=== PATIENT | male | born 1935 | race Caucasian/White ===

== ENCOUNTER 2017-08-07 12:24 | Inpatient (IN) | payer MEDICARE, OTHER ==
[~2017-08-07] VITALS: Ht 165.1 cm; Wt 70.3 kg
[2017-08-07 12:45] VITALS: Ht 165.1 cm; Wt 70.3 kg
--- NOTE | 2017-08-07 12:54 | ERD ---
ER Documentation Chief Complaint Chief Complaint Irregularly irregular rhythm from dialysis HPI This is an 81-year-old male with a history of hypertension, hypothyroidism on Synthroid, COPD, end-stage renal disease on dialysis Sunday//Sunday who is presenting with concerns of new onset atrial fibrillation from dialysis. The patient states that he thinks he has had an irregular rhythm in the past, but he does not know for sure. The patient was at dialysis today when it was noted that he was in an irregularly irregular rhythm. There is concerns of acute onset atrial fibrillation. It is unclear when it started. The patient is not on any blood thinners. She otherwise does not endorse any symptoms. The patient denies feeling sick recently. The patient denies fever or chills. The patient has had no headache or vision changes. The patient does not endorse neck or back pain. The patient denies lightheadedness or dizziness. The patient has had no chest pain or shortness of breath or trouble breathing. The patient denies nausea or vomiting. The patient denies abdominal pain or changes to bowel movements or urination. The patient has had no focal deficits. The patient has had no weakness or numbness or tingling to the face or extremities. ROS All systems reviewed and are negative except as per history of present illness. Medications Home Meds Reported Medications Albuterol Sulfate* (Proair HFA*) 8.5 Gm Hfa.aer.ad, 2 PUFF INH Q4H Y for WHEEZING AND SOB, #1 INHALER 08/07/17 Levothyroxine Sodium* (Levothyroxine Sodium*) 50 Mcg Tablet, 50 MCG PO BEFORE BREAKFAST, #30 TAB 08/07/17 Metoprolol Tartrate* (Lopressor*) 50 Mg Tab, 50 MG PO BID, #60 TAB 08/07/17 Hydralazine Hcl* (Apresoline*) 50 Mg Tab, 50 MG PO Q8, #90 TAB 08/07/17 Allergies Allergies: Coded Allergies: No Known Allergy (Unverified , 08/07/17) PMhx/Soc History of Surgery: Yes (R AV Fistula) Anesthesia Reaction: No Hx Neurological Disorder: No Hx Respiratory Disorders: No Hx Cardiac Disorders: Yes (HTN) Hx Psychiatric Problems: No Hx Miscellaneous Medical Probl: Yes (ESRD on HD //) FmHx Family History: diabetes Physical Exam Vitals Vital Signs Date Time Temp Pulse Resp B/P Pulse Ox O2 Delivery O2 Flow Rate FiO2 08/07/17 17:23 98.1 71 16 154/69 98 Room Air 08/07/17 14:54 98.2 107 17 159/81 98 Room Air 08/07/17 13:15 118 18 157/94 99 08/07/17 12:45 98.9 91 18 129/78 100 Physical Exam Const: No apparent distress, well-developed, well-nourished Head: Normocephalic, Atraumatic Eyes: Normal Conjunctiva. Extraocular movements intact. Pupils equal, round and reactive to light ENT: Normal External Ears, Nose and Mouth. Neck: Full range of motion. No meningismus. Resp: Clear to auscultation bilaterally, No wheezes, rales or rhonchi Cardio: Tachycardia, irregularly irregular rhythm. No murmurs, rubs or gallops Abd: Soft, non tender, non distended. Normal bowel sounds Skin: No petechiae or rashes. Back: No midline tenderness. No CVA tenderness Ext: No cyanosis, or edema. Palpable thrill to right upper extremity AV fistula. No bleeding. Neur: Awake and alert, oriented 4. Cranial nerves intact. No facial droop. Normal strength, sensation and coordination. Psych: Normal Mood and Affect Result Diagram: 08/07/17 1306 08/07/17 1306 Results 24 hrs Laboratory Tests Test 08/07/17 13:06 08/07/17 15:45 White Blood Count 5.510^3/ul Red Blood Count 3.4410^6/ul Hemoglobin 11.0g/dl Hematocrit 32.1% Mean Corpuscular Volume 93.3fl Mean Corpuscular Hemoglobin 32.0pg Mean Corpuscular Hemoglobin Concent 34.3g/dl Red Cell Distribution Width 13.4% Platelet Count 13970^3/UL Mean Platelet Volume 9.3fl Neutrophils % 68.4% Lymphocytes % 18.8% Monocytes % 9.2% Eosinophils % 2.7% Basophils % 0.5% Nucleated Red Blood Cells % 0.0/100WBC Neutrophils # 3.810^3/ul Lymphocytes # 1.010^3/ul Monocytes # 0.510^3/ul Eosinophils # 0.210^3/ul Basophils # 0.010^3/ul Nucleated Red Blood Cells # 0.010^3/ul Sodium Level 137mmol/L Potassium Level 4.3mmol/L Chloride Level 95mmol/L Carbon Dioxide Level 27mmol/L Anion Gap 19 Blood Urea Nitrogen 30mg/dl Creatinine 3.84mg/dl Glucose Level 120mg/dl Calcium Level 9.2mg/dl Troponin I < 0.012ng/ml Prothrombin Time 14.1Sec Prothrombin Time Ratio 1.1 INR International Normalized Ratio 1.09 Activated Partial Thromboplast Time 37.5Sec Current Medications Medications (Trade) Dose Ordered Sig/Raul Route PRN Reason Start Time Stop Time Status Last Admin Dose Admin Metoprolol Tartrate (Lopressor) 5 mg Q5M IV 08/07/17 15:30 08/07/17 15:43 DC Ondansetron HCl (Zofran Inj) 4 mg ER BRIDGE PRN IV NAUSEA AND/OR VOMITING 08/07/17 17:30 11 17:29 Acetaminophen (Tylenol Tab) 650 mg ER BRIDGE PRN PO MILD PAIN/FEVER 08/07/17 17:30 08/08/17 17:29 Procedures/MDM MDM The patient's presentation warrants further investigation. The onset of atrial fibrillation is unclear. The patient does not have a diagnosis of atrial fibrillation and he is not on any blood thinners at home. I am concerned about the possibility of clot burden and the patient will likely require admission to the hospital. A cardiac workup will be performed, though I have low suspicion for acute coronary syndrome given the patient's lack of symptoms. The patient does have a history of hypothyroidism on Synthroid. A TSH and free T4 will need to be evaluated in the hospital. LABS The patient's blood work was obtained and reviewed. The patient's CBC shows no leukocytosis and no left shift. The patient is afebrile and does not appear systemically ill. I do not suspect a systemic infection. The patient is mildly anemic today, but this does not require emergent treatment. The patient's platelet count is unremarkable. The patient's BMP shows no signs of metabolic or electrolyte emergencies. The patient has decreased renal function testing with an elevated BUN and creatinine, which correlates with his chronic kidney disease. Fortunately, he finished dialysis today. EKG EKG read by me: Rate/Rhythm: Irregularly irregular rhythm indicating atrial fibrillation with sinus tachycardia at 100 bpm, indicating a mild rapid ventricular response. Intervals: No P waves. Normal QRS and QTc. [place]: Left shifted Impression: A. fib with mild RVR, no evidence of acute ischemia. IMAGING CXR FINDINGS: There is mild cardiomegaly and an sclerotic aortic calcification. The pulmonary vessels are normal in caliber. There are increased markings in the left lower lung in the retrocardiac region may represent evolving infiltrate. Recommend a lateral view for further evaluation. Lungs otherwise clear. Costophrenic angles sharp. The bony thorax is unremarkable. IMPRESSION: Increased markings with questionable air bronchograms in the left lower lobe which may represent evolving pneumonia. Recommend lateral view for further evaluation. Mild cardiomegaly and atherosclerotic aortic calcification Electronically viewed and signed by .Tj Law MD, MD on 08/07/2017 13:05 TREATMENT/DISPOSITION The patient's heart rate jumped up to the 120s and seemed to remain there for some time. I did order metoprolol for him. However, prior to administration of the metoprolol, he actually converted to a normal sinus rhythm. I am concerned about paroxysmal atrial fibrillation and him. A TSH and free T4 was sent off. It will be interesting to see if this is associated with his paroxysmal symptoms. The patient will be initiated on heparin in the hospital and will likely require anticoagulation at home. This decision will be deferred to the primary team. At this time, I feel that the patient requires admission for further evaluation and management. The patient will be admitted to panel in accordance with the patient's insurance. The patient was accepted by Dr. Russel Morales at 5:30 PM on July. The patient's blood pressure was elevated at greater than 120/80 while in the emergency department. This may be evaluated further in the hospital. Disclaimer: Inadvertent spelling and grammatical errors are likely due to EHR/ dictation software use and do not reflect on the overall quality of patient care. Note that the electronic time recorded on this note does not necessarily reflect the actual time of the patient encounter. Departure Diagnosis: Primary Impression: Atrial fibrillation Atrial fibrillation type: unspecified Qualified Code: I48.91 - Atrial fibrillation, unspecified type Additional Impressions: Hypertension Hypertension type: unspecified Qualified Code: I10 - Hypertension, unspecified type History of hypothyroidism Condition: WILLIAM Huff MD Aug 07, 2017 12:54
--- NOTE | 2017-08-07 13:06 | RADRPT ---
PROCEDURE: Chest x-ray CLINICAL INDICATION: Chest pain TECHNIQUE: Chest single view COMPARISON: None FINDINGS: There is mild cardiomegaly and an sclerotic aortic calcification. The pulmonary vessels are normal in caliber. There are increased markings in the left lower lung in the retrocardiac region may repr esent evolving infiltrate. Recommend a lateral view for further evaluation. Lungs otherwise clear. C ostophrenic angles sharp. The bony thorax is unremarkable. IMPRESSION: 1. Increased markings with questionable air bronchograms in the left lower lobe which may represent evolving pneumonia. Recommend lateral view for further evaluation. 2. Mild cardiomegaly and atherosclerotic aortic calcification RPTAT: HH .Tj Law MD, MD Date Time Electronically viewed and signed by .Tj Law MD, on 08/07/2017 13:05 .W/
[2017-08-07 13:21] LABS: BASOPHILS % 0.5 % (0.0-2.0); EOSINOPHILS # 0.2 10^3/ul (0.0-0.5); EOSINOPHILS % 2.7 % (0.0-7.0); HEMATOCRIT 32.1 % (42.0-52.0); LYMPHOCYTES % 18.8 % (15.0-51.0); MEAN CORPUSCULAR HGB CONC 34.3 g/dl (32.0-37.0); MEAN CORPUSCULAR VOLUME 93.3 fl (82.0-101.0); MEAN PLATELET VOLUME 9.3 fl (7.4-10.4); MONOCYTE # 0.5 10^3/ul (0.3-0.9); MONOCYTES % 9.2 % (0.0-11.0); NEUTROPHIL # 3.8 10^3/ul (1.6-7.5); NEUTROPHILS % 68.4 % (39.0-77.0); PLATELET COUNT 208 10^3/UL (140-415); RED BLOOD COUNT 3.44 10^6/ul (4.70-6.10); RED CELL DISTRIBUTION WIDTH 13.4 % (11.5-14.5); WHITE BLOOD COUNT 5.5 10^3/ul (4.8-10.8)
[2017-08-07] MEDS ORDERED: HYDR-3672 PO (13:25)
[2017-08-07] MEDS ORDERED: METO-429 PO (13:25)
[2017-08-07] MEDS ORDERED: ALBU8.5H3 INH (13:27)
[2017-08-07] MEDS ORDERED: LEVO50TA74 PO (13:27)
[2017-08-07 13:40] LABS: ANION GAP 19 (8-16); BLOOD UREA NITROGEN 30 mg/dl (7-20); CALCIUM 9.2 mg/dl (8.4-10.2); CARBON DIOXIDE 27 mmol/L (21-31); CHLORIDE 95 mmol/L (97-110); CREATININE 3.84 mg/dl (0.61-1.24); GLUCOSE 120 mg/dl (70-220); POTASSIUM 4.3 mmol/L (3.5-5.1); SODIUM 137 mmol/L (135-144)
[2017-08-07 13:53] LABS: TROPONIN-I < 0.012 ng/ml (0.00-0.12)
[2017-08-07] MEDS: METOPROLOL 5 MG INJ IV SCH ×3 (15:30→15:40)
[2017-08-07 16:20] LABS: INR 1.09; PROTIME 14.1 Sec (12.2-14.2); PT RATIO 1.1
[2017-08-07 16:21] LABS: PARTIAL THROMBOPLASTIN TIME 37.5 Sec (25.0-35.0)
[2017-08-07] MEDS ORDERED: ONDANSETRON 4 MG INJ IV PRN ×2 (17:30→18:30)
[2017-08-07] MEDS ORDERED: ACETAMINOPHEN 325 MG TAB PO PRN ×2 (17:30→18:30)
[2017-08-07] MEDS ORDERED: ALBUTEROL/IPRATROPIUM (NEB) 3 ML AMP HHN PRN (18:30)
[2017-08-07] MEDS ORDERED: HYDROCODONE/APAP (5/325) TAB PO PRN (18:30)
[2017-08-07] MEDS ORDERED: LORAZEPAM 0.5 MG TAB PO PRN (18:30)
[2017-08-07] MEDS ORDERED: morphine 2 MG INJ IV PRN (18:30)
[2017-08-07] MEDS ORDERED: DOCUSATE SODIUM 100 MG CAP PO PRN (18:30)
[2017-08-07] MEDS ORDERED: BISACODYL (EC) 5 MG TAB PO PRN (18:30)
[2017-08-07] MEDS ORDERED: NACL 0.9% 3 ML SYG IV SCH (18:30)
[2017-08-07 18:40] VITALS: TEMP 98.9
--- NOTE | 2017-08-07 18:42 | HP ---
Date/Time of Note Date/Time of Note DATE: 08/07/17 TIME: 18:37 Assessment/Plan VTE Prophylaxis VTE Prophylaxis Intervention: heparin Lines/Catheters IV C[facility]ter [facility]from [facility] [place] Assessment/Plan Chief Complaint/Hosp Course Patient is a 81-year-old male with past medical history of hypothyroidism, hypertension, ESRD who presents with new onset atrial fibrillation with RVR Assessment and plan Atrial fibrillation with RVR -Normal sinus currently -Cardiology consulted, heparin drip started, due to questionable previous history, questionable paroxysmal A. fib -Continue rate control medication as patient is already on metoprolol -Monitor on telemetry End-stage renal disease -Nephrology consulted as patient's diesel engine assembler is not on staff -Had full dialysis today, next dialysis session is scheduled for Questionable pneumonia -Asymptomatic with no shortness of breath, however x-ray does show questionable pneumonia, 2 view will be ordered -Ceftriaxone for now Hypothyroidism -TSH in the a.m. with T4 excellent-continue levothyroxine Hypertension -Continue hydralazine and metoprolol Problems: HPI/ROS Admit Date/Time Admit Date/Time Hx of Present Illness Patient is a 81-year-old male with past medical history significant for hypothyroidism, hypertension, end-stage renal disease on hemodialysis Sunday, , Sunday who presents to [facility] hospital after being sent by his dialysis center for atrial fibrillation with RVR. Patient is currently asymptomatic and feels perfectly fine with no acute complaints. Patient states that he does not feel lightheaded, and has no nausea vomiting diarrhea or dizziness. 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 Patient is helped by sophy at bedside who states that patient may have a history of an arrhythmia but does not know if it is atrial fibrillation in the past. PMH: Hypertension, end-stage renal disease, hypothyroidism PSH: Right sided AV fistula upper extremity Social: Denies drinking, drugs, smoking Meds: Metoprolol, levothyroxine, albuterol, hydralazine PMH/Family/Social Social History Smoking Status: Former smoker Exam/Review of Systems Vital Signs Vitals Vital Signs Date Time Temp Pulse Resp B/P Pulse Ox O2 Delivery O2 Flow Rate FiO2 08/07/17 17:23 98.1 71 16 154/69 98 Room Air Exam Exam Physical exam General: Patient is laying in bed and answers questions appropriately Mentation: Patient is alert and oriented 4, Head: Normocephalic atraumatic Eyes: EOMI, pupils reactive to light Neck: Supple, nontender, midline Respiratory: Clear to auscultation bilaterally Cardiovascular: regular rate, no obvious murmurs Gastrointestinal: non-tender to palpation, bowel sounds heard. Neurological: Moves all extremities spontaneously Skin: No new skin lesions Labs Result Diagram: 08/07/17 1306 08/07/17 1306 Medications Medications Current Medications Lorazepam (Ativan) 0.5 mg Q8H PRN PO ANXIETY; Start 08/07/17 at 18:30; Status UNV Ondansetron HCl (Zofran Inj) 4 mg Q6H PRN IV NAUSEA AND/OR VOMITING; Start at 18:30; Status UNV Aspirin (Aspirin) 81 mg DAILY PO ; Start 08/08/17 at 09:00; Status UNV Acetaminophen (Tylenol Tab) 650 mg Q6H PRN PO PAIN LEVEL 1-3 OR FEVER; Start 08/07/17 at 18:30; Status UNV Acetaminophen/ Hydrocodone Bitart ([place] (5/325)) 1 tab Q6H PRN PO PAIN LEVEL 4 -6; Start 08/07/17 at 18:30; Status UNV Morphine Sulfate (morphine) 2 mg Q4H PRN IV PAIN LEVEL 7-10; Start 08/07/17 at 18:30; Status UNV Docusate Sodium (Colace) 100 mg Q12H PRN PO CONSTIPATION; Start 08/07/17 at 18 :30; Status UNV Bisacodyl 5 mg 5 mg DAILY PRN PO CONSTIPATION; Start 08/07/17 at 18:30; Status UNV Ceftriaxone Sodium (Rocephin) 50 ml @ 100 mls/hr Q24H IVPB ; Start 08/07/17 at 18:30; Status UNV Hydralazine HCl (Apresoline) 50 mg Q8 PO ; Start 08/07/17 at 22:00; Status UNV Metoprolol Tartrate (Lopressor) 50 mg BID PO ; Start 08/07/17 at 21:00; Status UNV RENNY ESQUIVEL Aug 07, 2017 18:42
[2017-08-07 18:55] LABS: BASOPHILS % 0.5 % (0.0-2.0); EOSINOPHILS # 0.1 10^3/ul (0.0-0.5); EOSINOPHILS % 1.2 % (0.0-7.0); HEMATOCRIT 31.1 % (42.0-52.0); HEMOGLOBIN 10.7 g/dl (14.0-18.0); LYMPHOCYTES # 0.9 10^3/ul (0.8-2.9); LYMPHOCYTES % 14.6 % (15.0-51.0); MEAN CORPUSCULAR HEMOGLOBIN 31.8 pg (29.0-33.0); MEAN CORPUSCULAR HGB CONC 34.4 g/dl (32.0-37.0); MEAN CORPUSCULAR VOLUME 92.6 fl (82.0-101.0); MEAN PLATELET VOLUME 9.7 fl (7.4-10.4); MONOCYTE # 0.4 10^3/ul (0.3-0.9); MONOCYTES % 6.5 % (0.0-11.0); NEUTROPHIL # 4.9 10^3/ul (1.6-7.5); NEUTROPHILS % 76.9 % (39.0-77.0); PLATELET COUNT 230 10^3/UL (140-415); RED BLOOD COUNT 3.36 10^6/ul (4.70-6.10); RED CELL DISTRIBUTION WIDTH 13.4 % (11.5-14.5); WHITE BLOOD COUNT 6.4 10^3/ul (4.8-10.8)
[2017-08-07] MEDS ORDERED: HEPARIN 1000 UNITS/ML 10 ML INJ IV ONE (19:00)
[2017-08-07] MEDS ORDERED: HEPARIN 1000 UNITS/ML 10 ML INJ IV PRN (19:00)
[2017-08-07] MEDS ORDERED: LABETALOL HCL 20MG INJ IV PRN (19:00)
[2017-08-07] MEDS ORDERED: hydrALAzine 20 MG INJ IV PRN (19:00)
[2017-08-07] MEDS: ALBUTEROL/IPRATROPIUM (NEB) 3 ML AMP HHN SCH (19:58)
[2017-08-07 20:08] VITALS: PULSE 71
[2017-08-07 20:32] VITALS: BP 140/57; RESP 16
[2017-08-07 20:41] LABS: INR 0.99; PARTIAL THROMBOPLASTIN TIME 26.1 Sec (25.0-35.0); PROTIME 13.1 Sec (12.2-14.2)
[2017-08-07] MEDS: METOPROLOL 50 MG TAB PO SCH (22:42)
[2017-08-07] MEDS: HEPARIN 25000 UNITS/250 ML 250 ML IV SCH (23:08)
[2017-08-07] MEDS: CEFTRIAXONE 1 GM/50 ML (PMX) 50 ML IVPB SCH (23:31)
[2017-08-08] VITALS (12 sets, daily range): BP systolic 122–153; BP diastolic 57–70; PULSE 57–71; RESP 17–20
--- NOTE | 2017-08-08 04:47 | RADRPT ---
PROCEDURE: XR Chest. CLINICAL INDICATION: pneumonia TECHNIQUE: PA and Lateral views of the chest were obtained. COMPARISON: CHEST 08/07/2017 FINDINGS: There are low volumes with lower lobe compressive changes. Stable cardiomegaly with thoracic aortic atherosclerotic calcifications. The right hemidiaphragm is elevated with associated compressive atel ectasis. Interval improved left retrocardiac aeration with decreased infiltrates or atelectasis. The re is no evidence of congestive heart failure, pleural effusion or pneumothorax. Senescent osseous c hanges are noted. IMPRESSION: 1. Interval decreased left retrocardiac infiltrates or atelectasis. 2. Stable cardiomegaly. 3. Thoracic aortic atherosclerotic calcifications. 4. Senescent osseous changes. RPTAT: HRSR Physician Debbie Date Time Electronically viewed and signed by Physician Debbie on 08/08/2017 04:47 RR/
[2017-08-08] MEDS: LEVOTHYROXINE 50 MCG TAB PO SCH (06:17)
[2017-08-08 08:12] LABS: BASOPHILS % 0.5 % (0.0-2.0); EOSINOPHILS # 0.2 10^3/ul (0.0-0.5); EOSINOPHILS % 3.9 % (0.0-7.0); HEMATOCRIT 28.9 % (42.0-52.0); LYMPHOCYTES # 1.2 10^3/ul (0.8-2.9); LYMPHOCYTES % 21.6 % (15.0-51.0); MEAN CORPUSCULAR HEMOGLOBIN 32.4 pg (29.0-33.0); MEAN CORPUSCULAR HGB CONC 34.6 g/dl (32.0-37.0); MEAN CORPUSCULAR VOLUME 93.5 fl (82.0-101.0); MEAN PLATELET VOLUME 9.3 fl (7.4-10.4); MONOCYTE # 0.5 10^3/ul (0.3-0.9); MONOCYTES % 9.3 % (0.0-11.0); NEUTROPHIL # 3.7 10^3/ul (1.6-7.5); NEUTROPHILS % 64.5 % (39.0-77.0); PLATELET COUNT 213 10^3/UL (140-415); RED BLOOD COUNT 3.09 10^6/ul (4.70-6.10); RED CELL DISTRIBUTION WIDTH 13.7 % (11.5-14.5); WHITE BLOOD COUNT 5.7 10^3/ul (4.8-10.8)
[2017-08-08] MEDS: ALBUTEROL/IPRATROPIUM (NEB) 3 ML AMP HHN SCH ×3 (08:30→19:37)
[2017-08-08 08:32] LABS: ALBUMIN/GLOBULIN RATIO 1.14; BILIRUBIN,INDIRECT 0.3 mg/dl (0-1.1); BILIRUBIN,TOTAL 0.3 mg/dl (0.2-1.3); CALCIUM 8.4 mg/dl (8.4-10.2); CHOL/HDL RATIO 3.7 RATIO; CREATININE 5.96 mg/dl (0.61-1.24); POTASSIUM 5.4 mmol/L (3.5-5.1); TOTAL PROTEIN 7.5 g/dl (6.1-8.1)
[2017-08-08 08:45] LABS: INR 1.1; PROTIME 14.2 Sec (12.2-14.2); PT RATIO 1.1
[2017-08-08] MEDS ORDERED: ASPIRIN 81 MG TAB PO SCH (09:00)
--- NOTE | 2017-08-08 09:03 | CONS ---
DATE OF ADMISSION: 08/07/2017 DATE OF CONSULTATION: ADDENDUM PHYSICAL EXAMINATION: VITAL SIGNS: 148/61, temp 98, respirations 20, pulse was 70 and regular. EYES: Extraocular muscles were full. NOSE, MOUTH, AND THROAT: Normal. NECK: No JVD, thyroid enlargement or adenopathy. LUNGS: Clear. HEART: Rhythm regular. Heart tones diminished, I/ systolic murmur. No third or fourth sound. ABDOMEN: Nontender. Liver and spleen were not palpable. No masses or tenderness were noted. EXTREMITIES: No edema. Reduced peripheral pulses. Calves nontender. NEUROLOGIC: No lateralizing motor weakness. Dictated By: KEYSHAWN BARBA/JONEL Conf#: [id number] DID#: [id number]
--- NOTE | 2017-08-08 09:06 | CONS ---
DATE OF ADMISSION: 08/07/2017 DATE OF CONSULTATION: 08/08/2017 TYPE OF CONSULTATION: Renal. Dear Dr. Max López: Thank you very much for allowing me to evaluate this 81-year-old male with known chronic renal insuf ficiency having been maintained on outpatient dialysis, admitted with palpitations during his dialys is treatment yesterday. HISTORICAL EVENTS: Interview with the patient today reveals he has been on dialysis for about 3-4 y ears. It was towards the end or after dialysis that he noted palpitations. He noted some mild shor tness of breath, no chest pain, nausea, vomiting or abdominal pain, fever or chills or cough. Becau se of the latter, he was transported to [facility] and admitted to the hospital and [facility] e admission monitoring has revealed regular rhythm. PAST MEDICAL HISTORY: Includes: 1. No history of coronary disease or NE. 2. Chronic renal insufficiency, having been on dialysis for about 5 years. 3. Hypothyroidism. 4. Former smoker. 5. History of diabetes. FAMILY HISTORY: To be obtained later. PRESENT MEDICATIONS: 1. Ceftriaxone 1 gram q.24h. 2. Tylenol p.r.n. 3. Albuterol inhaler. 4. Aspirin 81 mg per day. 5. Heparin drip. 6. Hydralazine as needed. 7. Synthroid 50 mcg per day. 8. Metoprolol 50 b.i.d. LABORATORY AND DIAGNOSTIC STUDIES: Electrolytes unrevealing. Troponin was negative. TSH was 5.43. Protime was normal. PTT slightly elevated to 37.5. CBC, hematocrit 31.1, white count normal, monik telets were normal. Imaging revealed increased markings with questionable bronchogram left lower lo be, thought representing pneumonia. IMPRESSION: 1. Chronic renal failure, having been maintained on dialysis pending labs today. His next dialysis can be scheduled tomorrow. 2. Atrial fibrillation noted on rhythm strip prior to his arrival with evidence of sinus rhythm sin admission. Await cardiac evaluation with respect to treadmill testing and need for chronic antic oagulation therapy. 3. Anemia, likely secondary to renal insufficiency. 4. Abnormal chest x-ray suggesting pneumonia, but without other clinical evidence supporting the sa me. Consider obtaining a CAT scan of the chest to confirm. PLAN: We will arrange for next dialysis tomorrow if indeed he remains admitted to the hospital. Dictated By: KEYSHAWN UPTON MD MR/NTS Conf#: [id number] DID#: [id number]
[2017-08-08 09:27] LABS: PARTIAL THROMBOPLASTIN TIME 101.4 Sec (25.0-35.0)
[2017-08-08] MEDS ORDERED: NA POLYST SULFON 15 GM/60 ML BTL PO ONE (09:30)
[2017-08-08] MEDS: HEPARIN 25000 UNITS/250 ML 250 ML IV SCH ×2 (09:38→16:56)
[2017-08-08] MEDS: MULTIVIT/CA CARB/B CMPLX/FA TAB PO SCH (10:21)
[2017-08-08] MEDS: METOPROLOL 50 MG TAB PO SCH ×2 (10:21→21:30)
--- NOTE | 2017-08-08 13:01 | RADRPT ---
PROCEDURE: CT Chest without contrast. CLINICAL INDICATION: Shortness of breath TECHNIQUE: CT scan of the chest without contrast was performed on a multidetector high-resolution CT scanner. Coronal and sagittal reformatted images were obtained from the axial source images. The total exam CTDI equals 14 mGy and the total exam DLP equals 527 mGy-cm. One or more of the followi ng dose reduction techniques were used: Automated exposure control, Adjustment of the mA and/or kV a ccording to patient size, and/or use of iterative reconstruction technique. DICOM images are availab le. COMPARISON: Chest x-ray yesterday. FINDINGS: Left lower lobe calcified granuloma. There are intralobular and interlobular left basilar lung septa l thickening with bronchiolectasis. Left lower lobe pleural thickening. There is mild right lower l obe scarring. Right lower lobe subpleural nodule adjacent to the major fissure. 3 mm right periphera l upper lobe clustered solid nodules. No mediastinal or hilar lymphadenopathy. No evidence of pleural or pericardial effusion. Aortic atherosclerosis. The visualized upper abdomen is grossly unremarkable. Degenerative changes to the thoracic spine are seen. Bilateral renal atrophy. IMPRESSION: Left lower lobe calcified granuloma with intralobular and interlobular left basilar lung septal thic [place] with bronchiolectasis is age indeterminate but suggestive of a sequela of prior granulomatous infection. If there are new respiratory symptoms, acute on chronic bronchiolitis is not excluded. N o evidence of pleural effusion. Right lower lobe subpleural nodule adjacent to the major fissure. 3 mm right peripheral upper lobe clustered solid nodules. If the patient is high risk, 12 month foll ow-up CT may be obtained. RPTAT: AA .Cristian Seo MD, MD Date Time Electronically viewed and signed by .Cristian Seo MD, MD on 08/08/2017 13:00 .T/
--- NOTE | 2017-08-08 15:13 | PN ---
Date/Time of Note Date/Time of Note DATE: 08/08/17 TIME: 15:09 Assessment/Plan VTE Prophylaxis VTE Prophylaxis Intervention: SCD's Lines/Catheters IV [facility]ter [facility]from [facility] Saline Lock Urinary Cath still in place: No Assessment/Plan Chief Complaint/Hosp Course s: no acute change, resting comfortably o: Physical exam General: Patient is laying in bed and answers questions appropriately Mentation: Patient is alert and oriented 4, Head: Normocephalic atraumatic Eyes: EOMI, pupils reactive to light Neck: Supple, nontender, midline Respiratory: Clear to auscultation bilaterally Cardiovascular: regular rate, no obvious murmurs Gastrointestinal: non-tender to palpation, bowel sounds heard. Neurological: Moves all extremities spontaneously Skin: No new skin lesions Patient is a 81-year-old male with past medical history of hypothyroidism, hypertension, ESRD who presents with new onset atrial fibrillation with RVR Assessment and plan Atrial fibrillation with RVR -Normal sinus currently -Cardiology consulted, heparin drip started, due to questionable previous history, questionable paroxysmal A. fib -Continue rate control medication as patient is already on metoprolol -Monitor on telemetry End-stage renal disease -Nephrology consulted as patient's nca certified concierge is not on staff -Had full dialysis today, next dialysis session is scheduled for calcified granuloma and nodules -repeat CT in 12 months recommended -stopping abx as no signs of PNA Hypothyroidism -TSH mildly elevated, on levothyroxine, continue current dose as T4 is WNL -f/u with primary care provider for repeat TSH and possible adjustment of dose. Hypertension -Continue hydralazine and metoprolol dispo: -f/u with cardiology recs Problems: Exam/Review of Systems Vital Signs Vitals Vital Signs Date Time Temp Pulse Resp B/P Pulse Ox O2 Delivery O2 Flow Rate FiO2 08/08/17 14:07 89 20 21 08/08/17 12:13 97.5 127/57 97 08/07/17 18:40 Room Air Intake and Output 08/07/17 08/07/17 08/08/17 15:00 23:00 07:00 Intake Total 250 ml Balance 250 ml Results Result Diagram: 08/08/17 0752 08/08/17 0752 Results 24 hrs Laboratory Tests Test 08/07/17 15:45 08/07/17 18:07 08/07/17 18:30 08/07/17 19:50 Prothrombin Time 14.1 13.1 Prothrombin Time Ratio 1.1 1.0 INR International Normalized Ratio 1.09 0.99 Activated Partial Thromboplast Time 37.5 H 26.1 Thyroid Stimulating Hormone (TSH) 5.430 H Free Thyroxine 1.04 White Blood Count 6.4 Red Blood Count 3.36 L Hemoglobin 10.7 L Hematocrit 31.1 L Mean Corpuscular Volume 92.6 Mean Corpuscular Hemoglobin 31.8 Mean Corpuscular Hemoglobin Concent 34.4 Red Cell Distribution Width 13.4 Platelet Count 230 Mean Platelet Volume 9.7 Neutrophils % 76.9 Lymphocytes % 14.6 L Monocytes % 6.5 Eosinophils % 1.2 Basophils % 0.5 Nucleated Red Blood Cells % 0.0 Neutrophils # 4.9 Lymphocytes # 0.9 Monocytes # 0.4 Eosinophils # 0.1 Basophils # 0.0 Nucleated Red Blood Cells # 0.0 Test 08/08/17 07:52 White Blood Count 5.7 Red Blood Count 3.09 L Hemoglobin 10.0 L Hematocrit 28.9 L Mean Corpuscular Volume 93.5 Mean Corpuscular Hemoglobin 32.4 Mean Corpuscular Hemoglobin Concent 34.6 Red Cell Distribution Width 13.7 Platelet Count 213 Mean Platelet Volume 9.3 Neutrophils % 64.5 Lymphocytes % 21.6 Monocytes % 9.3 Eosinophils % 3.9 Basophils % 0.5 Nucleated Red Blood Cells % 0.0 Neutrophils # 3.7 Lymphocytes # 1.2 Monocytes # 0.5 Eosinophils # 0.2 Basophils # 0.0 Nucleated Red Blood Cells # 0.0 Prothrombin Time 14.2 Prothrombin Time Ratio 1.1 INR International Normalized Ratio 1.10 Activated Partial Thromboplast Time 101.4 *H Sodium Level 134 L Potassium Level 5.4 H Chloride Level 95 L Carbon Dioxide Level 27 Anion Gap 17 H Blood Urea Nitrogen 49 #H Creatinine 5.96 #H Glucose Level 95 Calcium Level 8.4 Magnesium Level 1.8 Total Bilirubin 0.3 Direct Bilirubin 0.00 Indirect Bilirubin 0.3 Aspartate Amino Transf (AST/SGOT) 22 Alanine Aminotransferase (ALT/SGPT) 37 Alkaline Phosphatase 78 Total Protein 7.5 Albumin 4.0 Globulin 3.50 H Albumin/Globulin Ratio 1.14 Triglycerides Level 42 Cholesterol Level 153 LDL Cholesterol, Calculated 104 HDL Cholesterol 41 Cholesterol/HDL Ratio 3.7 Medications Medications Current Medications Lorazepam (Ativan) 0.5 mg Q8H PRN PO ANXIETY; Start 08/07/17 at 18:30 Ondansetron HCl (Zofran Inj) 4 mg Q6H PRN IV NAUSEA AND/OR VOMITING; Start at 18:30 Acetaminophen (Tylenol Tab) 650 mg Q6H PRN PO PAIN LEVEL 1-3 OR FEVER; Start 08/07/17 at 18:30 Acetaminophen/ Hydrocodone Bitart ([place] (5/325)) 1 tab Q6H PRN PO PAIN LEVEL 4 -6; Start 08/07/17 at 18:30 Morphine Sulfate (morphine) 2 mg Q4H PRN IV PAIN LEVEL 7-10; Start 08/07/17 at 18:30 Docusate Sodium (Colace) 100 mg Q12H PRN PO CONSTIPATION; Start 08/07/17 at 18 :30 Bisacodyl 5 mg 5 mg DAILY PRN PO CONSTIPATION; Start 08/07/17 at 18:30 Ceftriaxone Sodium (Rocephin) 50 ml @ 100 mls/hr Q24H IVPB Last administered on 08/07/17 23:31; Admin Dose 100 MLS/HR; Start 08/07/17 at 18:30 Hydralazine HCl (Apresoline) 50 mg Q8 PO Last administered on 08/08/17 06:18 ; Admin Dose 50 MG; Start 08/07/17 at 22:00 Metoprolol Tartrate (Lopressor) 50 mg BID PO Last administered on 08/08/17 10 :21; Admin Dose 50 MG; Start 08/07/17 at 21:00 Hydralazine HCl (Apresoline) 10 mg Q4H PRN IV sbp>160; Start 08/07/17 at 19:00 Labetalol HCl (Labetalol) 10 mg Q4 PRN IV sbp>160; Start 08/07/17 at 19:00 Influenza Virus Vaccine (Fluzone) 0.5 ml ONCE ONCE IM* ; Start 08/09/17 at 09: 00; Stop 08/09/17 at 09:01 Multivit/Ca Carb/ B Cmplx/FA/Prenat (Elena-Loretta) 1 tab DAILY PO Last administered on 08/08/17 10:21; Admin Dose 1 TAB; Start 08/08/17 at 09:00 Epoetin Devin (Epogen (Esrd)) 10,000 units MoWeFr@17 SC ; Start 08/08/17 at 17: 00 RENNY ESQUIVEL Aug 08, 2017 15:13
[2017-08-08] MEDS: CEFTRIAXONE 1 GM/50 ML (PMX) 50 ML IVPB SCH (17:06)
[2017-08-08] MEDS: EPOETIN 10000 UNITS/1 ML INJ (ESRD) SC SCH (17:07)
--- NOTE | 2017-08-08 17:42 | RADRPT ---
Echocardiogram Report Patient Name: KILO MCKAY Gender: Male Date: 1935 Study Date: 08-Aug-2017 Granulator Tender: Gabby Welch [facility] Location: 5540 Ref. Physician: RENNY ESQUIVEL Quality: Good Procedures: Transthoracic echocardiogram with complete 2D, M-Mode, and doppler examination. Indications: Atrial Fibrillation RVR. 2D/M Mode Doppler Measurement Value Normal Ranges Measurement Value Normal Ranges LVIDd 2D 5.1 3.5 - 5.6 cm AV Peak Jaswinder 1.9 m/sec LVIDs 2D 2.4 2.1 - 4.1 cm AV Peak PG 14.2 mmHg LVPWd 2D 1.0 0.6 - 1.1 cm LVOT Peak Jaswinder 1.2 m/sec IVSd 2D 1.1 0.6 - 1.1 cm LVOT Peak PG 5.6 mmHg AoR Diam 2D 3.0 2.0 - 3.7 cm MV E Peak Jaswinder 1.0 m/sec EDV 2D 125.6 cm3 MV A Peak Jaswinder 1.0 m/sec ESV 2D 13.0 cm3 MV E/A 1.0 LA Dimen 2D 3.4 2.3 - 4.0 cm MV Decel Time 206 msec MV Decel [place] 5 MV E/A 1.0 TR Peak Jaswinder 3.0 m/sec TR Peak PG 35.7 mmHg RVSP 39.0 mmHg Findings Left Ventricle: Normal left ventricular systolic function. Normal left ventricular cavity size. Mild concentric left ventricular hypertrophy. Ejection fraction is visually estimated at 60 %. Tissue Doppler/Mitral Doppler indices are consistent with impaired relaxation (Stage I diastolic dysfunction). Right Ventricle: Normal right ventricular size. Normal right ventricular systolic function. Left Atrium: The left atrium is normal in size. Right Atrium: The right atrium is normal in size. Mitral Valve: Mitral valve leaflets appear mildly thickened. Mild mitral annular calcification. Trace mitral regurgitation. Aortic Valve: No significant aortic stenosis or insufficiency. Aortic cusps appear mildly calcified. Tricuspid Valve: Normal appearance of the tricuspid valve. Estimated peak PA systolic pressure 39 mmHg. There is mild tricuspid regurgitation. Pulmonic Valve: Normal pulmonic valve appearance. Pericardium: Normal pericardium with no significant pericardial effusion. Aorta: Normal aortic root. IVC: Normal size and normal respiratory collapse consistent with normal right atrial pressure. Conclusions 1.Normal left ventricular systolic function. Normal left ventricular cavity size. Mild concentric left ventricular hypertrophy. Ejection fraction is visually estimated at 60 %. Tissue Doppler/Mitral Doppler indices are consistent with impaired relaxation (Stage I diastolic dysfunction). 2.Mitral valve leaflets appear mildly thickened. Mild mitral annular calcification. Trace mitral regurgitation. 3.Normal appearance of the tricuspid valve. Estimated peak PA systolic pressure 39 mmHg. There is mild tricuspid regurgitation. Electronically Signed By: Heron Castillo 08-Aug-2017 17:41:11 -0800 Patient Name: KILO MCKAY Study Date: 08-Aug-2017 [id number]
[2017-08-08] MEDS ORDERED: METOPROLOL 5 MG INJ IV PRN (19:30)
--- NOTE | 2017-08-08 20:24 | CONS ---
DATE OF ADMISSION: 08/07/2017 DATE OF CONSULTATION: 08/08/2017 CARDIOLOGY CONSULTATION REASON FOR CONSULTATION: Paroxysmal atrial fibrillation with rapid ventricular response. REQUESTING PHYSICIAN: Dr. Morales from the hospitalist service. HISTORY OF PRESENT ILLNESS: Mr. Henao is an 81-year-old male with history of end-stage renal diseas e on hemodialysis, hypertension, hypothyroidism who initially presented with complaints of palpitati ons. Upon arrival in the emergency department, temperature 98.9, blood pressure 129/78, pulse 91, r espiratory rate 18, satting 100%. Patient's labs: White count 5.5, hemoglobin 11.0, platelet count of 208. Sodium 137, potassium 4.3, creatinine 2.8, BUN 30. INR 1.09. TSH of 543 with a negative free T4. Negative troponin. LDL 104, HDL 41. The patient underwent a chest x-ray revealing an int erval decrease of left retrocardiac infiltrate, ____ atelectasis, stable cardiomegaly, thoracic aort ic atherosclerosis, calcifications and a chest CT that revealed left lower lobe calcified granuloma with interlobular left basilar lung septal thickening with bronchiectasis age indeterminate but sugg estive of ____ prior granulomatous infection, right lower lobe subpleural nodule. The patient's sepideh ctrocardiogram reveals atrial fibrillation with rapid ventricular response at a rate of 118, with no rmal axis, normal intervals, nonspecific ST-T abnormalities diffusely. The patient subsequently adm itted to the floor and since admitted to the floor, has been monitored on telemetry with conversion to sinus rhythm which he remains in at this time. The patient has been placed on hydralazine, beta morelia and IV heparin at this time. Additionally, he is being treated with antibiotic therapy. PAST MEDICAL HISTORY: As above in HPI. MEDICATIONS CURRENTLY IN HOSPITAL: 1. Epogen. 2. Elena-Loretta. 3. Synthroid 50 mcg daily. 4. Hydralazine 50 mg p.o. q.8. 5. Metoprolol 50 mg p.o. b.i.d. 6. DuoNebs. 7. Heparin IV. 8. Hydralazine 10 IV q.4 p.r.n. 9. Labetalol p.r.n. 10. Tylenol p.r.n. 11. Morphine p.r.n. 12. Ceftriaxone IV daily. ALLERGIES: NO KNOWN DRUG ALLERGIES. SOCIAL HISTORY: No tobacco, EtOH or illicit drug use. FAMILY HISTORY: Negative for sudden cardiac or early CAD. REVIEW OF SYSTEMS: As above in HPI. CONSTITUTIONAL: No fevers, chills. PULMONARY: No current shortness of breath. CARDIOVASCULAR: No current chest pain. GASTROINTESTINAL: No vomiting. GENITOURINARY: No hematuria but end-stage renal disease. PSYCHIATRIC: No documented psych history. NEUROLOGIC: No documented history of CVA. PHYSICAL EXAMINATION VITAL SIGNS: Temperature of 98.5, blood pressure 122/69, pulse 69, respiratory rate 17, satting 93% . GENERAL: The patient is alert, awake, in no acute distress. NECK: JVP approximately 9 cm of water. CHEST: Fair air movement throughout with mildly decreased breath sounds at the bases bilaterally. HEART: Regular rate and rhythm. Normal S1, S2, I/ systolic murmur, nondisplaced PMI. ABDOMEN: Positive bowel sounds, soft. EXTREMITIES: No pitting edema, 1+ pulses bilateral posterior tibial. LABORATORIES: As above in HPI, with most recent from today, sodium 134, potassium of 5.4, creatinin e 5.9, BUN of 49. White blood cell count 5.7, hemoglobin 10.0, platelet count of 213. IMAGING STUDIES: As above in HPI. No further imaging studies for my review at this time. ELECTROCARDIOGRAM: No further electrocardiograms for my review at this time. IMPRESSION: 1. Paroxysmal atrial fibrillation with rapid response, now converted to sinus rhythm and remains. 2. Hypertension, under reasonable control. 3. Abnormal electrocardiogram with nonspecific ST-T abnormalities. Assess for acute coronary syndr ome. Possibly provoked in the setting of atrial fibrillation with rapid ventricular response. 4. End-stage renal disease, on hemodialysis. 5. Hypothyroidism. 6. Possible pneumonia. 7. Hyperkalemia. 8. Hyponatremia. 9. Anemia. RECOMMENDATIONS: 1. At this time, would maintain the patient on telemetry monitoring to follow rhythm and rate contr ol closely. 2. Complete the patient's rule out for myocardial infarction ____ provoked any acute coronary syndr ome in the setting of atrial fibrillation with rapid ventricular response. 3. The patient is status post TSH analysis which is elevated with normal free T4. 4. Will follow the patient's 2D echo for assessment of ejection fraction, wall motion, left atrial size. 5. Hemodialysis for correction of potassium and sodium and volume removal generally. 6. Continue the patient's current Synthroid. 7. Given the patient's comorbid risk factors, it does give the patient an increased CHADS-VASc scor e and, therefore, benefit from systemic anticoagulation is possible and, therefore, would initiate t he patient on Eliquis for systemic anticoagulation, started at 5 mg 1 tab p.o. b.i.d. 8. Outpatient followup. Thank you for allowing me to take part in the care of this patient. I will continue to follow very closely with you with further recommendations to be made as the patient progresses through his [facility] clinical course. Dictated By: DAWOOD JAY/JONEL Conf#: [id number] DID#: [id number] CC: Russel Morales;*EndCC*
[2017-08-09] VITALS (20 sets, daily range): BP systolic 116–157; BP diastolic 59–80; PULSE 63–128; RESP 17–18
[2017-08-09 01:34] LABS: TROPONIN-I 0.035 ng/ml (0.00-0.12)
[2017-08-09 01:36] LABS: CK-MB 2.58 ng/ml (0.0-2.4)
[2017-08-09] MEDS: LEVOTHYROXINE 50 MCG TAB PO SCH (06:09)
--- NOTE | 2017-08-09 07:35 | PDOCDIS ---
Discharge Instructions CONDITION Patient Condition: Stable HOME CARE INSTRUCTIONS: Special Diet: Low cholesterol & low fat FOLLOW UP/APPOINTMENTS Follow-up Plan 1. Follow up with your primary care provider as soon as possible 2. Continue eliquis unless stopped by your doctor 3. If eliquis is not covered by insurance, please use attached (handed to you at discharge) coupon for free 30 day trial of eliquis until you see your primary care provider 4. Eliquis is used for the treatment of atrial fibrillation 5. Continue dialysis as usual 6. Take all other medications as usual RENNY ESQUIVEL Aug 09, 2017 07:35
[2017-08-09] MEDS ORDERED: APIX2.5T PO (07:36)
[2017-08-09] MEDS: ALBUTEROL/IPRATROPIUM (NEB) 3 ML AMP HHN SCH ×3 (07:53→20:45)
[2017-08-09] MEDS: METOPROLOL 50 MG TAB PO SCH ×2 (08:55→21:20)
[2017-08-09] MEDS: APIXABAN 5 MG TABLET PO SCH ×2 (08:59→21:20)
[2017-08-09] MEDS: MULTIVIT/CA CARB/B CMPLX/FA TAB PO SCH (08:59)
[2017-08-09] MEDS ORDERED: APIXABAN 5 MG TABLET PO SCH (09:00)
[2017-08-09] MEDS ORDERED: INFLUENZA VIRUS VACCINE 0.5 ML (DISPENSING) IM* ONE (09:00)
[2017-08-09 09:38] LABS: BASOPHILS % 0.6 % (0.0-2.0); EOSINOPHILS # 0.2 10^3/ul (0.0-0.5); EOSINOPHILS % 3.9 % (0.0-7.0); HEMATOCRIT 28.5 % (42.0-52.0); HEMOGLOBIN 9.7 g/dl (14.0-18.0); LYMPHOCYTES # 1.5 10^3/ul (0.8-2.9); LYMPHOCYTES % 28.9 % (15.0-51.0); MEAN CORPUSCULAR HEMOGLOBIN 31.8 pg (29.0-33.0); MEAN CORPUSCULAR VOLUME 93.4 fl (82.0-101.0); MEAN PLATELET VOLUME 9.5 fl (7.4-10.4); MONOCYTE # 0.5 10^3/ul (0.3-0.9); MONOCYTES % 9.4 % (0.0-11.0); PLATELET COUNT 215 10^3/UL (140-415); RED BLOOD COUNT 3.05 10^6/ul (4.70-6.10); RED CELL DISTRIBUTION WIDTH 13.4 % (11.5-14.5); WHITE BLOOD COUNT 5.3 10^3/ul (4.8-10.8)
[2017-08-09 10:10] LABS: CALCIUM 7.8 mg/dl (8.4-10.2); CREATININE 8.23 mg/dl (0.61-1.24); MAGNESIUM 1.8 mg/dl (1.7-2.5); PHOSPHORUS 6.7 mg/dl (2.5-4.9); POTASSIUM 4.8 mmol/L (3.5-5.1)
[2017-08-09 10:18] LABS: TROPONIN-I 0.027 ng/ml (0.00-0.12)
[2017-08-09 10:19] LABS: CK-MB 2.64 ng/ml (0.0-2.4)
[2017-08-09 10:21] LABS: IRON 104 ug/dl (35-150)
[2017-08-09 10:31] LABS: TOTAL IRON BINDING CAPACITY 191 ug/dl (241-421)
--- NOTE | 2017-08-09 11:29 | DS ---
Date/Time of Note Date/Time of Note DATE: 08/09/17 TIME: 11:29 Discharge Summary Admission/Discharge Info Admit Date/Time Aug 07, 2017 at 17:08 Discharge Date/Time Patient Condition: Stable Hx of Present Illness Patient is a 81-year-old male with past medical history significant for hypothyroidism, hypertension, end-stage renal disease on hemodialysis Sunday, , Sunday who presents to [facility] after being sent by his dialysis center for atrial fibrillation with RVR. Patient is currently asymptomatic and feels perfectly fine with no acute complaints. Patient states that he does not feel lightheaded, and has no nausea vomiting diarrhea or dizziness. 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 Patient is helped by sophy at bedside who states that patient may have a history of an arrhythmia but does not know if it is atrial fibrillation in the past. PMH: Hypertension, end-stage renal disease, hypothyroidism PSH: Right sided AV fistula upper extremity Social: Denies drinking, drugs, smoking Meds: Metoprolol, levothyroxine, albuterol, hydralazine Hospital Course Patient is a 81-year-old male with past medical history of hypothyroidism, hypertension and end-stage renal disease who presented to [facility] for new onset atrial fibrillation with RVR from dialysis center. Patient spontaneously reverted back to normal sinus rhythm and was evaluated by cardiology for possible anticoagulation. Cardiology saw patient and recommended Eliquis. Patient will be discharged to resume all other home medications and to start Eliquis at a reduced dose due to end-stage renal disease and age. Patient was also given prescription for Eliquis as well as a free 30 day coupon as to tide him over until he can follow with his primary care provider. It was discussed with the patient and he will follow-up with his primary care provider as soon as possible. Discharge diagnosis Paroxysmal atrial fibrillation with rapid ventricular response End-stage renal disease Calcified granuloma nodules Hypothyroidism Hypertension Home Meds Active Scripts Apixaban* (Eliquis*) 2.5 Mg Tablet, 2.5 MG PO BID, #60 TAB 1 Refill Prov:RENNY ESQUIVEL 08/09/17 Reported Medications Albuterol Sulfate* (Proair HFA*) 8.5 Gm Hfa.aer.ad, 2 PUFF INH Q4H Y for WHEEZING AND SOB, #1 INHALER 08/07/17 Levothyroxine Sodium* (Levothyroxine Sodium*) 50 Mcg Tablet, 50 MCG PO BEFORE BREAKFAST, #30 TAB 08/07/17 Metoprolol Tartrate* (Lopressor*) 50 Mg Tab, 50 MG PO BID, #60 TAB 08/07/17 Hydralazine Hcl* (Apresoline*) 50 Mg Tab, 50 MG PO Q8, #90 TAB 08/07/17 Follow-up Plan 1. Follow up with your primary care provider as soon as possible 2. Continue eliquis unless stopped by your doctor 3. If eliquis is not covered by insurance, please use attached (handed to you at discharge) coupon for free 30 day trial of eliquis until you see your primary care provider 4. Eliquis is used for the treatment of atrial fibrillation 5. Continue dialysis as usual 6. Take all other medications as usual 7. follow up with repeat CT scan of chest for nodules in 6-12 months, ordered by your primary care provider Primary Care Provider Not On Staff Doctor Time spent on discharge: > 30 minutes Pending Labs Laboratory Tests Test 08/08/17 15:47 08/08/17 23:02 08/09/17 00:50 08/09/17 08:35 Activated Partial Thromboplast Time 86.9Sec (25.0-35.0) 60.7Sec (25.0-35.0) 39.3Sec (25.0-35.0) Creatine Kinase 164IU/L (23-200) 194IU/L (23-200) Creatine Kinase Index 1.6 1.4 Creatinine Kinase MB (Mass) 2.58ng/ml (0.0-2.4) 2.64ng/ml (0.0-2.4) Troponin I 0.035ng/ml (0.00-0.12) 0.027ng/ml (0.00-0.12) White Blood Count 5.310^3/ul (4.8-10.8) Red Blood Count 3.0510^6/ul (4.70-6.10) Hemoglobin 9.7g/dl (14.0-18.0) Hematocrit 28.5% (42.0-52.0) Mean Corpuscular Volume 93.4fl (82.0-101.0) Mean Corpuscular Hemoglobin 31.8pg (29.0-33.0) Mean Corpuscular Hemoglobin Concent 34.0g/dl (32.0-37.0) Red Cell Distribution Width 13.4% (11.5-14.5) Platelet Count 01227^3/UL (140-415) Mean Platelet Volume 9.5fl (7.4-10.4) Neutrophils % 57.0% (39.0-77.0) Lymphocytes % 28.9% (15.0-51.0) Monocytes % 9.4% (0.0-11.0) Eosinophils % 3.9% (0.0-7.0) Basophils % 0.6% (0.0-2.0) Nucleated Red Blood Cells % 0.0/100WBC (0.0-0.0) Neutrophils # 3.010^3/ul (1.6-7.5) Lymphocytes # 1.510^3/ul (0.8-2.9) Monocytes # 0.510^3/ul (0.3-0.9) Eosinophils # 0.210^3/ul (0.0-0.5) Basophils # 0.010^3/ul (0.0-0.1) Nucleated Red Blood Cells # 0.010^3/ul (0.0-0.0) Sodium Level 134mmol/L (135-144) Potassium Level 4.8mmol/L (3.5-5.1) Chloride Level 90mmol/L (97-110) Carbon Dioxide Level 26mmol/L (21-31) Anion Gap 23 (8-16) Blood Urea Nitrogen 64mg/dl (7-20) Creatinine 8.23mg/dl (0.61-1.24) Glucose Level 91mg/dl (70-220) Calcium Level 7.8mg/dl (8.4-10.2) Phosphorus Level 6.7mg/dl (2.5-4.9) Magnesium Level 1.8mg/dl (1.7-2.5) Iron Level 104ug/dl (35-150) Total Iron Binding Capacity 191ug/dl (241-421) Percent Iron Saturation 54% SAT (22-52) Ferritin Pending RENNY ESQUIVEL Aug 09, 2017 11:29
[2017-08-09] MEDS ORDERED: AMIODARONE 900 MG in DEXTROSE 5% 482 ML IV SCH (12:30)
--- NOTE | 2017-08-09 13:14 | CONS ---
Date/Time of Note Date/Time of Note DATE: 08/09/17 TIME: 13:12 Assessment/Plan Assessment/Plan Additional Assessment/Plan 1. Paroxysmal atrial fibrillation with rapid response - NOW IN a. fib with RVR again with HD - will load amio gtt now and likely keep on amio po to follow - HOLD D/c now. 2. Hypertension, under reasonable control- improved with HD. 3. Abnormal electrocardiogram with nonspecific ST-T abnormalities. Assess for acute coronary syndrome. Possibly provoked in the setting of atrial fibrillation with rapid ventricular response. 4. End-stage renal disease, on hemodialysis- 2L removed. 5. Hypothyroidism. 6. Possible pneumonia- rx with anti-Bx. 7. Hyperkalemia. 8. Hyponatremia. 9. Anemia. Consultation Date/Type/Reason Admit Date/Time Aug 07, 2017 at 17:08 Initial Consult Date 24 HR Interval Summary Free Text/Dictation NO acute events - BP in good range - no CP now - will adjust Rx as needed. ROS: No fever, no chills, no nausea, no vomiting, no diarrhea/constipation No recent weight changes No chest pain, no PND, no orthopnea No dizziness, blurred vision No thirst, no heat or cold intolerance Exam/Review of Systems Vital Signs Vitals Vital Signs Date Time Temp Pulse Resp B/P Pulse Ox O2 Delivery O2 Flow Rate FiO2 08/09/17 13:01 75 18 97 21 08/09/17 12:00 97.9 140/68 08/07/17 18:40 Room Air Intake and Output 08/08/17 08/08/17 08/09/17 15:00 23:00 07:00 Intake Total 1000 ml Balance 1000 ml Exam General: WN/WD/NAD, AOx 3 HEENT: Unicetric/atraumatic/EOMI (follows commands) NECK: JVD elevated, no thyromegaly Lymph: no lymphadenopathy HEART: tachy irregular with no S3, II/ systolic murmur at apex LUNGS: Coarse sounds ABD: soft, NT, ND, +BS : Intact Neuro: non focal SKIN: chronic changes EXT: trace edema Results Result Diagram: 08/09/17 0835 08/09/17 0835 Results 24 hrs Laboratory Tests Test 08/08/17 15:47 08/08/17 23:02 08/09/17 00:50 08/09/17 08:35 Activated Partial Thromboplast Time 86.9 *H 60.7 H 39.3 H Creatine Kinase 164 194 Creatine Kinase Index 1.6 1.4 Creatinine Kinase MB (Mass) 2.58 H 2.64 H Troponin I 0.035 0.027 White Blood Count 5.3 Red Blood Count 3.05 L Hemoglobin 9.7 L Hematocrit 28.5 L Mean Corpuscular Volume 93.4 Mean Corpuscular Hemoglobin 31.8 Mean Corpuscular Hemoglobin Concent 34.0 Red Cell Distribution Width 13.4 Platelet Count 215 Mean Platelet Volume 9.5 Neutrophils % 57.0 Lymphocytes % 28.9 Monocytes % 9.4 Eosinophils % 3.9 Basophils % 0.6 Nucleated Red Blood Cells % 0.0 Neutrophils # 3.0 Lymphocytes # 1.5 Monocytes # 0.5 Eosinophils # 0.2 Basophils # 0.0 Nucleated Red Blood Cells # 0.0 Sodium Level 134 L Potassium Level 4.8 Chloride Level 90 L Carbon Dioxide Level 26 Anion Gap 23 H Blood Urea Nitrogen 64 H Creatinine 8.23 #H Glucose Level 91 Calcium Level 7.8 L Phosphorus Level 6.7 H Magnesium Level 1.8 Iron Level 104 Total Iron Binding Capacity 191 L Percent Iron Saturation 54 H Ferritin 629.0 H Medications Medications Current Medications Lorazepam (Ativan) 0.5 mg Q8H PRN PO ANXIETY; Start 08/07/17 at 18:30 Ondansetron HCl (Zofran Inj) 4 mg Q6H PRN IV NAUSEA AND/OR VOMITING; Start at 18:30 Acetaminophen (Tylenol Tab) 650 mg Q6H PRN PO PAIN LEVEL 1-3 OR FEVER; Start 08/07/17 at 18:30 Acetaminophen/ Hydrocodone Bitart ([place] (5/325)) 1 tab Q6H PRN PO PAIN LEVEL 4 -6; Start 08/07/17 at 18:30 Morphine Sulfate (morphine) 2 mg Q4H PRN IV PAIN LEVEL 7-10; Start 08/07/17 at 18:30 Docusate Sodium (Colace) 100 mg Q12H PRN PO CONSTIPATION; Start 08/07/17 at 18 :30 Bisacodyl (Dulcolax) 5 mg DAILY PRN PO CONSTIPATION; Start 08/07/17 at 18:30 Hydralazine HCl (Apresoline) 50 mg Q8 PO Last administered on 08/09/17 06:10 ; Admin Dose 50 MG; Start 08/07/17 at 22:00 Metoprolol Tartrate (Lopressor) 50 mg BID PO Last administered on 08/08/17 21 :30; Admin Dose 50 MG; Start 08/07/17 at 21:00 Hydralazine HCl (Apresoline) 10 mg Q4H PRN IV sbp>160; Start 08/07/17 at 19:00 Labetalol HCl (Labetalol) 10 mg Q4 PRN IV sbp>160; Start 08/07/17 at 19:00 Multivit/Ca Carb/ B Cmplx/FA/Prenat ([place]len[place]-Loretta) 1 tab DAILY PO Last administered on 08/09/17 08:59; Admin Dose 1 TAB; Start 08/08/17 at 09:00 Epoetin Devin (Epogen (Esrd)) 10,000 units MoWeFr@17 SC Last administered on 17:07; Admin Dose 10,000 UNITS; Start 08/08/17 at 17:00 Metoprolol Tartrate (Lopressor) 5 mg Q4H PRN IV HR>110 Hold SBP<100 Last administered on 08/09/17 11:58; Admin Dose 5 MG; Start 08/08/17 at 19:30 Apixaban 2.5 mg 2.5 mg BID PO Last administered on 08/09/17 08:59; Admin Dose 2.5 MG; Start 08/09/17 at 09:00 Amiodarone HCl/ Dextrose (Cordarone Iv/ D5W) 500 ml @ 0 mls/hr Q0M IV ; Start 08/09/17 at 13:30; Stop 08/10/17 at 13:29; Status KEYSHAWN BARNETT MD Aug 09, 2017 13:14
[2017-08-09] MEDS: AMIODARONE 900 MG in DEXTROSE 5% 482 ML IV SCH ×2 (13:36→19:31)
--- NOTE | 2017-08-09 14:20 | CONS ---
Date/Time of Note Date/Time of Note DATE: 08/09/17 TIME: 14:17 Assessment/Plan Assessment/Plan Additional Assessment/Plan 1. Paroxysmal atrial fibrillation with rapid response -on amio ggt. fu per cards 2. Hypertension, under reasonable control- improved with HD. 3. Abnormal electrocardiogram with nonspecific ST-T abnormalities. Assess for acute coronary syndrome. Possibly provoked in the setting of atrial fibrillation with rapid ventricular response. 4. End-stage renal disease, s/p hd today, next hd sunday 5. Hypothyroidism.on replacement 6. Possible pneumonia- rx with anti-Bx. ct with multiple nodules and bronchiectasis 7. Anemia: epogen prn to keep hb> 10. check iron sats Consultation Date/Type/Reason Admit Date/Time Aug 07, 2017 at 17:08 Initial Consult Date 24 HR Interval Summary Free Text/Dictation no complaints. a fib with rvr with hd today. on amio ggt Exam/Review of Systems Vital Signs Vitals Vital Signs Date Time Temp Pulse Resp B/P Pulse Ox O2 Delivery O2 Flow Rate FiO2 08/09/17 13:01 75 18 97 21 08/09/17 12:00 97.9 140/68 08/07/17 18:40 Room Air Intake and Output 08/08/17 08/08/17 08/09/17 15:00 23:00 07:00 Intake Total 1000 ml Balance 1000 ml Exam Constitutional: alert, oriented Psych: no complaints Head: atraumatic, normocephalic Eyes: nl conjunctiva ENMT: nl external ears & nose Neck: non-tender, supple Respiratory: diminished breath sounds Cardiovascular: edema, nl pulses, regular rate and rhythm Gastrointestinal: soft Results Result Diagram: 08/09/17 0835 08/09/17 0835 Results 24 hrs Laboratory Tests Test 08/08/17 15:47 08/08/17 23:02 08/09/17 00:50 08/09/17 08:35 Activated Partial Thromboplast Time 86.9 *H 60.7 H 39.3 H Creatine Kinase 164 194 Creatine Kinase Index 1.6 1.4 Creatinine Kinase MB (Mass) 2.58 H 2.64 H Troponin I 0.035 0.027 White Blood Count 5.3 Red Blood Count 3.05 L Hemoglobin 9.7 L Hematocrit 28.5 L Mean Corpuscular Volume 93.4 Mean Corpuscular Hemoglobin 31.8 Mean Corpuscular Hemoglobin Concent 34.0 Red Cell Distribution Width 13.4 Platelet Count 215 Mean Platelet Volume 9.5 Neutrophils % 57.0 Lymphocytes % 28.9 Monocytes % 9.4 Eosinophils % 3.9 Basophils % 0.6 Nucleated Red Blood Cells % 0.0 Neutrophils # 3.0 Lymphocytes # 1.5 Monocytes # 0.5 Eosinophils # 0.2 Basophils # 0.0 Nucleated Red Blood Cells # 0.0 Sodium Level 134 L Potassium Level 4.8 Chloride Level 90 L Carbon Dioxide Level 26 Anion Gap 23 H Blood Urea Nitrogen 64 H Creatinine 8.23 #H Glucose Level 91 Calcium Level 7.8 L Phosphorus Level 6.7 H Magnesium Level 1.8 Iron Level 104 Total Iron Binding Capacity 191 L Percent Iron Saturation 54 H Ferritin 629.0 H Medications Medications Current Medications Lorazepam (Ativan) 0.5 mg Q8H PRN PO ANXIETY; Start 08/07/17 at 18:30 Ondansetron HCl (Zofran Inj) 4 mg Q6H PRN IV NAUSEA AND/OR VOMITING; Start at 18:30 Acetaminophen (Tylenol Tab) 650 mg Q6H PRN PO PAIN LEVEL 1-3 OR FEVER; Start 08/07/17 at 18:30 Acetaminophen/ Hydrocodone Bitart ([place] (5/325)) 1 tab Q6H PRN PO PAIN LEVEL 4 -6; Start 08/07/17 at 18:30 Morphine Sulfate (morphine) 2 mg Q4H PRN IV PAIN LEVEL 7-10; Start 08/07/17 at 18:30 Docusate Sodium (Colace) 100 mg Q12H PRN PO CONSTIPATION; Start 08/07/17 at 18 :30 Bisacodyl (Dulcolax) 5 mg DAILY PRN PO CONSTIPATION; Start 08/07/17 at 18:30 Hydralazine HCl (Apresoline) 50 mg Q8 PO Last administered on 08/09/17 06:10 ; Admin Dose 50 MG; Start 08/07/17 at 22:00 Metoprolol Tartrate (Lopressor) 50 mg BID PO Last administered on 08/08/17 21 :30; Admin Dose 50 MG; Start 08/07/17 at 21:00 Hydralazine HCl (Apresoline) 10 mg Q4H PRN IV sbp>160; Start 08/07/17 at 19:00 Labetalol HCl (Labetalol) 10 mg Q4 PRN IV sbp>160; Start 08/07/17 at 19:00 Multivit/Ca Carb/ B Cmplx/FA/Prenat ([place]len[place]-Loretta) 1 tab DAILY PO Last administered on 08/09/17 08:59; Admin Dose 1 TAB; Start 08/08/17 at 09:00 Epoetin Devin (Epogen (Esrd)) 10,000 units MoWeFr@17 SC Last administered on 17:07; Admin Dose 10,000 UNITS; Start 08/08/17 at 17:00 Metoprolol Tartrate (Lopressor) 5 mg Q4H PRN IV HR>110 Hold SBP<100 Last administered on 08/09/17 11:58; Admin Dose 5 MG; Start 08/08/17 at 19:30 Apixaban 2.5 mg 2.5 mg BID PO Last administered on 08/09/17 08:59; Admin Dose 2.5 MG; Start 08/09/17 at 09:00 Amiodarone HCl/ Dextrose (Cordarone Iv/ D5W) 500 ml @ 0 mls/hr Q0M IV Last administered on 08/09/17 13:36; Admin Dose 33.4 MLS/HR; Start 08/09/17 at 13: 30; Stop 08/10/17 at 13:29 SANG BRIONES MD Aug 09, 2017 14:20
[2017-08-10] VITALS (8 sets, daily range): BP systolic 149–152; BP diastolic 65–66; PULSE 58–74; RESP 18
[2017-08-10] MEDS: LEVOTHYROXINE 50 MCG TAB PO SCH (06:16)
[2017-08-10] MEDS: ALBUTEROL/IPRATROPIUM (NEB) 3 ML AMP HHN SCH ×3 (07:48→20:40)
[2017-08-10 08:50] LABS: BASOPHILS % 0.7 % (0.0-2.0); EOSINOPHILS # 0.4 10^3/ul (0.0-0.5); HEMOGLOBIN 9.5 g/dl (14.0-18.0); LYMPHOCYTES # 1.1 10^3/ul (0.8-2.9); LYMPHOCYTES % 19.2 % (15.0-51.0); MEAN CORPUSCULAR HEMOGLOBIN 31.9 pg (29.0-33.0); MEAN CORPUSCULAR HGB CONC 33.9 g/dl (32.0-37.0); MEAN PLATELET VOLUME 9.8 fl (7.4-10.4); MONOCYTE # 0.6 10^3/ul (0.3-0.9); MONOCYTES % 10.1 % (0.0-11.0); NEUTROPHIL # 3.7 10^3/ul (1.6-7.5); NEUTROPHILS % 63.8 % (39.0-77.0); PLATELET COUNT 199 10^3/UL (140-415); RED BLOOD COUNT 2.98 10^6/ul (4.70-6.10); RED CELL DISTRIBUTION WIDTH 13.6 % (11.5-14.5); WHITE BLOOD COUNT 5.8 10^3/ul (4.8-10.8)
[2017-08-10 08:53] LABS: IRON 104 ug/dl (35-150)
[2017-08-10 08:57] LABS: ALBUMIN 3.7 g/dl (3.3-4.9); ALBUMIN/GLOBULIN RATIO 0.97; BILIRUBIN,INDIRECT 0.3 mg/dl (0-1.1); BILIRUBIN,TOTAL 0.3 mg/dl (0.2-1.3); CALCIUM 8.4 mg/dl (8.4-10.2); CREATININE 6.99 mg/dl (0.61-1.24); POTASSIUM 5.1 mmol/L (3.5-5.1); TOTAL PROTEIN 7.5 g/dl (6.1-8.1)
[2017-08-10 09:02] LABS: TOTAL IRON BINDING CAPACITY 197 ug/dl (241-421)
[2017-08-10] MEDS: MULTIVIT/CA CARB/B CMPLX/FA TAB PO SCH (09:42)
[2017-08-10] MEDS: METOPROLOL 50 MG TAB PO SCH ×2 (09:44→22:22)
[2017-08-10] MEDS: APIXABAN 5 MG TABLET PO SCH ×2 (09:45→22:23)
--- NOTE | 2017-08-10 11:27 | PN ---
Date/Time of Note Date/Time of Note DATE: 08/10/17 TIME: :24 Assessment/Plan VTE Prophylaxis VTE Prophylaxis Intervention: ambulation, SCD's Lines/Catheters IV Catheter Type (from Nrs): Peripheral IV Urinary Cath still in place: No Assessment/Plan Chief Complaint/Hosp Course s: 11.22 no acute change, resting comfortably 11.23 no acute change 11.24 back to a-fib rvr last night, currently back in NSR o: Physical exam General: Patient is laying in bed and answers questions appropriately Mentation: Patient is alert and oriented 4, Head: Normocephalic atraumatic Eyes: EOMI, pupils reactive to light Neck: Supple, nontender, midline Respiratory: Clear to auscultation bilaterally Cardiovascular: regular rate, no obvious murmurs Gastrointestinal: non-tender to palpation, bowel sounds heard. 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 Hypertension -Continue hydralazine and metoprolol dispo: -f/u with cardiology recs -medication adjustment and monitor for 24 more hours if new medication or adjustment is made per cardiology -likely DC tomorrow if no issues, after dialysis Problems: Exam/Review of Systems Vital Signs Vitals Vital Signs Date Time Temp Pulse Resp B/P Pulse Ox O2 Delivery O2 Flow Rate FiO2 08/10/17 08:11 58 08/10/17 07:49 18 95 21 08/10/17 04:00 98.9 152/65 Room Air Intake and Output 08/09/17 08/09/17 08/10/17 15:00 23:00 07:00 Intake Total 500 ml 1117 ml 240 ml Output Total 2500 ml Balance -2000 ml 1117 ml 240 ml Results Result Diagram: 08/10/17 0724 08/10/17 0725 Results 24 hrs Laboratory Tests Test 08/10/17 07:24 08/10/17 07:25 White Blood Count 5.8 Red Blood Count 2.98 L Hemoglobin 9.5 L Hematocrit 28.0 L Mean Corpuscular Volume 94.0 Mean Corpuscular Hemoglobin 31.9 Mean Corpuscular Hemoglobin Concent 33.9 Red Cell Distribution Width 13.6 Platelet Count 199 Mean Platelet Volume 9.8 Neutrophils % 63.8 Lymphocytes % 19.2 Monocytes % 10.1 Eosinophils % 6.0 Basophils % 0.7 Nucleated Red Blood Cells % 0.0 Neutrophils # 3.7 Lymphocytes # 1.1 Monocytes # 0.6 Eosinophils # 0.4 Basophils # 0.0 Nucleated Red Blood Cells # 0.0 Iron Level 104 Total Iron Binding Capacity 197 L Percent Iron Saturation 53 H Sodium Level 137 Potassium Level 5.1 Chloride Level 95 L Carbon Dioxide Level 27 Anion Gap 20 H Blood Urea Nitrogen 46 #H Creatinine 6.99 H Glucose Level 99 Calcium Level 8.4 Ferritin 631.0 H Total Bilirubin 0.3 Direct Bilirubin 0.00 Indirect Bilirubin 0.3 Aspartate Amino Transf (AST/SGOT) 22 Alanine Aminotransferase (ALT/SGPT) 30 Alkaline Phosphatase 65 Total Protein 7.5 Albumin 3.7 Globulin 3.80 H Albumin/Globulin Ratio 0.97 Medications Medications Current Medications Lorazepam (Ativan) 0.5 mg Q8H PRN PO ANXIETY; Start 08/07/17 at 18:30 Ondansetron HCl (Zofran Inj) 4 mg Q6H PRN IV NAUSEA AND/OR VOMITING; Start at 18:30 Acetaminophen (Tylenol Tab) 650 mg Q6H PRN PO PAIN LEVEL 1-3 OR FEVER; Start 08/07/17 at 18:30 Acetaminophen/ Hydrocodone Bitart ([place] (5/325)) 1 tab Q6H PRN PO PAIN LEVEL 4 -6; Start 08/07/17 at 18:30 Morphine Sulfate (morphine) 2 mg Q4H PRN IV PAIN LEVEL 7-10; Start 08/07/17 at 18:30 Docusate Sodium (Colace) 100 mg Q12H PRN PO CONSTIPATION; Start 08/07/17 at 18 :30 Bisacodyl (Dulcolax) 5 mg DAILY PRN PO CONSTIPATION; Start 08/07/17 at 18:30 Hydralazine HCl (Apresoline) 50 mg Q8 PO Last administered on 08/10/17 06:17 ; Admin Dose 50 MG; Start 08/07/17 at 22:00 Metoprolol Tartrate (Lopressor) 50 mg BID PO Last administered on 08/10/17 09 :44; Admin Dose 50 MG; Start 08/07/17 at 21:00 Hydralazine HCl (Apresoline) 10 mg Q4H PRN IV sbp>160; Start 08/07/17 at 19:00 Labetalol HCl (Labetalol) 10 mg Q4 PRN IV sbp>160; Start 08/07/17 at 19:00 Multivit/Ca Carb/ B Cmplx/FA/Prenat (Elena-Loretta) 1 tab DAILY PO Last administered on 08/10/17 09:42; Admin Dose 1 TAB; Start 08/08/17 at 09:00 Epoetin Devin (Epogen (Esrd)) 10,000 units MoWeFr@17 SC Last administered on 17:07; Admin Dose 10,000 UNITS; Start 08/08/17 at 17:00 Metoprolol Tartrate (Lopressor) 5 mg Q4H PRN IV HR>110 Hold SBP<100 Last administered on 08/09/17 11:58; Admin Dose 5 MG; Start 08/08/17 at 19:30 Apixaban 2.5 mg 2.5 mg BID PO Last administered on 08/10/17 09:45; Admin Dose 2.5 MG; Start 08/09/17 at 09:00 Amiodarone HCl/ Dextrose (Cordarone Iv/ D5W) 500 ml @ 0 mls/hr Q0M IV Last administered on 08/09/17 19:31; Admin Dose 16.7 MLS/HR; Start 08/09/17 at 13: 30; Stop 08/10/17 at 13:29 RENNY ESQUIVEL Aug 10, 2017 11:27
--- NOTE | 2017-08-10 11:54 | CONS ---
Date/Time of Note Date/Time of Note DATE: 08/10/17 TIME: 11:51 Assessment/Plan Assessment/Plan Additional Assessment/Plan 1. Paroxysmal atrial fibrillation with rapid response, now in NSR 2. Hypertension, under reasonable control- improved with HD. 3. Abnormal electrocardiogram with nonspecific ST-T abnormalities. Assess for acute coronary syndrome. Possibly provoked in the setting of atrial fibrillation with rapid ventricular response. 4. End-stage renal disease, s/p hd yesterday, next tomorrow 5. Hypothyroidism.on replacement 6. Possible pneumonia- rx with anti-Bx. ct with multiple nodules and bronchiectasis 7. Anemia: epogen prn to keep hb> 10. Consultation Date/Type/Reason Admit Date/Time Aug 07, 2017 at 17:08 Initial Consult Date Type of Consultation: Nephrology 24 HR Interval Summary Free Text/Dictation Alert, denies CP or SOB Exam/Review of Systems Vital Signs Vitals Vital Signs Date Time Temp Pulse Resp B/P Pulse Ox O2 Delivery O2 Flow Rate FiO2 08/10/17 08:11 58 08/10/17 07:49 18 95 21 08/10/17 04:00 98.9 152/65 Room Air Intake and Output 08/09/17 08/09/17 08/10/17 15:00 23:00 07:00 Intake Total 500 ml 1117 ml 240 ml Output Total 2500 ml Balance -2000 ml 1117 ml 240 ml Exam Constitutional: alert Neck: supple, No jvd Respiratory: clear to auscultation Cardiovascular: regular rate and rhythm Gastrointestinal: soft Extremities: other (fistula RUE), No edema Results Result Diagram: 08/10/17 0724 08/10/17 0725 Results 24 hrs Laboratory Tests Test 08/10/17 07:24 08/10/17 07:25 White Blood Count 5.8 Red Blood Count 2.98 L Hemoglobin 9.5 L Hematocrit 28.0 L Mean Corpuscular Volume 94.0 Mean Corpuscular Hemoglobin 31.9 Mean Corpuscular Hemoglobin Concent 33.9 Red Cell Distribution Width 13.6 Platelet Count 199 Mean Platelet Volume 9.8 Neutrophils % 63.8 Lymphocytes % 19.2 Monocytes % 10.1 Eosinophils % 6.0 Basophils % 0.7 Nucleated Red Blood Cells % 0.0 Neutrophils # 3.7 Lymphocytes # 1.1 Monocytes # 0.6 Eosinophils # 0.4 Basophils # 0.0 Nucleated Red Blood Cells # 0.0 Iron Level 104 Total Iron Binding Capacity 197 L Percent Iron Saturation 53 H Sodium Level 137 Potassium Level 5.1 Chloride Level 95 L Carbon Dioxide Level 27 Anion Gap 20 H Blood Urea Nitrogen 46 #H Creatinine 6.99 H Glucose Level 99 Calcium Level 8.4 Ferritin 631.0 H Total Bilirubin 0.3 Direct Bilirubin 0.00 Indirect Bilirubin 0.3 Aspartate Amino Transf (AST/SGOT) 22 Alanine Aminotransferase (ALT/SGPT) 30 Alkaline Phosphatase 65 Total Protein 7.5 Albumin 3.7 Globulin 3.80 H Albumin/Globulin Ratio 0.97 Medications Medications Current Medications Lorazepam (Ativan) 0.5 mg Q8H PRN PO ANXIETY; Start 08/07/17 at 18:30 Ondansetron HCl (Zofran Inj) 4 mg Q6H PRN IV NAUSEA AND/OR VOMITING; Start at 18:30 Acetaminophen (Tylenol Tab) 650 mg Q6H PRN PO PAIN LEVEL 1-3 OR FEVER; Start 08/07/17 at 18:30 Acetaminophen/ Hydrocodone Bitart ([place] (5/325)) 1 tab Q6H PRN PO PAIN LEVEL 4 -6; Start 08/07/17 at 18:30 Morphine Sulfate (morphine) 2 mg Q4H PRN IV PAIN LEVEL 7-10; Start 08/07/17 at 18:30 Docusate Sodium (Colace) 100 mg Q12H PRN PO CONSTIPATION; Start 08/07/17 at 18 :30 Bisacodyl (Dulcolax) 5 mg DAILY PRN PO CONSTIPATION; Start 08/07/17 at 18:30 Hydralazine HCl (Apresoline) 50 mg Q8 PO Last administered on 08/10/17 06:17 ; Admin Dose 50 MG; Start 08/07/17 at 22:00 Metoprolol Tartrate (Lopressor) 50 mg BID PO Last administered on 08/10/17 09 :44; Admin Dose 50 MG; Start 08/07/17 at 21:00 Hydralazine HCl (Apresoline) 10 mg Q4H PRN IV sbp>160; Start 08/07/17 at 19:00 Labetalol HCl (Labetalol) 10 mg Q4 PRN IV sbp>160; Start 08/07/17 at 19:00 Multivit/Ca Carb/ B Cmplx/FA/Prenat (Elena-Loretta) 1 tab DAILY PO Last administered on 08/10/17 09:42; Admin Dose 1 TAB; Start 08/08/17 at 09:00 Epoetin Devin (Epogen (Esrd)) 10,000 units MoWeFr@17 SC Last administered on 17:07; Admin Dose 10,000 UNITS; Start 08/08/17 at 17:00 Metoprolol Tartrate (Lopressor) 5 mg Q4H PRN IV HR>110 Hold SBP<100 Last administered on 08/09/17 11:58; Admin Dose 5 MG; Start 08/08/17 at 19:30 Apixaban 2.5 mg 2.5 mg BID PO Last administered on 08/10/17 09:45; Admin Dose 2.5 MG; Start 08/09/17 at 09:00 Amiodarone HCl/ Dextrose (Cordarone Iv/ D5W) 500 ml @ 0 mls/hr Q0M IV Last administered on 08/09/17 19:31; Admin Dose 16.7 MLS/HR; Start 08/09/17 at 13: 30; Stop 08/10/17 at 13:29 KARI MIGUEL MD Aug 10, 2017 11:54
[2017-08-10] MEDS: AMIODARONE 200 MG TAB PO SCH ×2 (13:59→22:23)
--- NOTE | 2017-08-10 14:59 | CONS ---
Date/Time of Note Date/Time of Note DATE: 08/10/17 TIME: 14:58 Assessment/Plan Assessment/Plan Additional Assessment/Plan 1. Paroxysmal atrial fibrillation with rapid response - NOW IN a. fib with RVR again with HD - will load amio gtt now and likely keep on amio po to follow - HOLD D/c now.CONVERTED TO SINUS -loaded with amio IV - will convert to po now. 2. Hypertension, under reasonable control- improved with HD. Tolerated well besides a. fib. 3. Abnormal electrocardiogram with nonspecific ST-T abnormalities. Assess for acute coronary syndrome. Possibly provoked in the setting of atrial fibrillation with rapid ventricular response. 4. End-stage renal disease, on hemodialysis- 2L removed. STABLE. 5. Hypothyroidism. 6. Possible pneumonia- rx with anti-Bx. 7. Hyperkalemia. 8. Hyponatremia. 9. Anemia. Consultation Date/Type/Reason Admit Date/Time Aug 07, 2017 at 17:08 Type of Consultation: Nephrology 24 HR Interval Summary Free Text/Dictation In sinus now - will start amio po load now. ROS: No fever, no chills, no nausea, no vomiting, no diarrhea/constipation No recent weight changes No chest pain, no PND, no orthopnea No dizziness, blurred vision No thirst, no heat or cold intolerance Exam/Review of Systems Vital Signs Vitals Vital Signs Date Time Temp Pulse Resp B/P Pulse Ox O2 Delivery O2 Flow Rate FiO2 08/10/17 12:11 65 08/10/17 07:49 18 95 21 08/10/17 04:00 98.9 152/65 Room Air Intake and Output 08/09/17 08/09/17 08/10/17 14:59 22:59 06:59 Intake Total 500 ml 1117 ml 240 ml Output Total 2500 ml Balance -2000 ml 1117 ml 240 ml Exam General: WN/WD/NAD, AOx 3 HEENT: Unicetric/atraumatic/EOMI (follows commands) NECK: JVD elevated, no thyromegaly Lymph: no lymphadenopathy HEART: regular with no S3, II/ systolic murmur at apex LUNGS: Coarse sounds ABD: soft, NT, ND, +BS : Intact Neuro: non focal SKIN: chronic changes EXT: trace edema Results Result Diagram: 11/24/17 0724 11/24/17 0725 Results 24 hrs Laboratory Tests Test 08/10/17 07:24 08/10/17 07:25 White Blood Count 5.8 Red Blood Count 2.98 L Hemoglobin 9.5 L Hematocrit 28.0 L Mean Corpuscular Volume 94.0 Mean Corpuscular Hemoglobin 31.9 Mean Corpuscular Hemoglobin Concent 33.9 Red Cell Distribution Width 13.6 Platelet Count 199 Mean Platelet Volume 9.8 Neutrophils % 63.8 Lymphocytes % 19.2 Monocytes % 10.1 Eosinophils % 6.0 Basophils % 0.7 Nucleated Red Blood Cells % 0.0 Neutrophils # 3.7 Lymphocytes # 1.1 Monocytes # 0.6 Eosinophils # 0.4 Basophils # 0.0 Nucleated Red Blood Cells # 0.0 Iron Level 104 Total Iron Binding Capacity 197 L Percent Iron Saturation 53 H Sodium Level 137 Potassium Level 5.1 Chloride Level 95 L Carbon Dioxide Level 27 Anion Gap 20 H Blood Urea Nitrogen 46 #H Creatinine 6.99 H Glucose Level 99 Calcium Level 8.4 Ferritin 631.0 H Total Bilirubin 0.3 Direct Bilirubin 0.00 Indirect Bilirubin 0.3 Aspartate Amino Transf (AST/SGOT) 22 Alanine Aminotransferase (ALT/SGPT) 30 Alkaline Phosphatase 65 Total Protein 7.5 Albumin 3.7 Globulin 3.80 H Albumin/Globulin Ratio 0.97 Medications Medications Current Medications Lorazepam (Ativan) 0.5 mg Q8H PRN PO ANXIETY; Start 08/07/17 at 18:30 Ondansetron HCl (Zofran Inj) 4 mg Q6H PRN IV NAUSEA AND/OR VOMITING; Start at 18:30 Acetaminophen (Tylenol Tab) 650 mg Q6H PRN PO PAIN LEVEL 1-3 OR FEVER; Start 08/07/17 at 18:30 Acetaminophen/ Hydrocodone Bitart ([place] (5/325)) 1 tab Q6H PRN PO PAIN LEVEL 4 -6; Start 08/07/17 at 18:30 Morphine Sulfate (morphine) 2 mg Q4H PRN IV PAIN LEVEL 7-10; Start 08/07/17 at 18:30 Docusate Sodium (Colace) 100 mg Q12H PRN PO CONSTIPATION; Start 08/07/17 at 18 :30 Bisacodyl (Dulcolax) 5 mg DAILY PRN PO CONSTIPATION; Start 08/07/17 at 18:30 Hydralazine HCl (Apresoline) 50 mg Q8 PO Last administered on 08/10/17 14:50 ; Admin Dose 50 MG; Start 08/07/17 at 22:00 Metoprolol Tartrate (Lopressor) 50 mg BID PO Last administered on 08/10/17 09 :44; Admin Dose 50 MG; Start 08/07/17 at 21:00 Hydralazine HCl (Apresoline) 10 mg Q4H PRN IV sbp>160; Start 08/07/17 at 19:00 Labetalol HCl (Labetalol) 10 mg Q4 PRN IV sbp>160; Start 08/07/17 at 19:00 Multivit/Ca Carb/ B Cmplx/FA/Prenat (Elena-Loretta) 1 tab DAILY PO Last administered on 08/10/17 09:42; Admin Dose 1 TAB; Start 08/08/17 at 09:00 Epoetin Devin (Epogen (Esrd)) 10,000 units MoWeFr@17 SC Last administered on 17:07; Admin Dose 10,000 UNITS; Start 08/08/17 at 17:00 Metoprolol Tartrate (Lopressor) 5 mg Q4H PRN IV HR>110 Hold SBP<100 Last administered on 08/09/17 11:58; Admin Dose 5 MG; Start 08/08/17 at 19:30 Apixaban (Eliquis) 2.5 mg BID PO Last administered on 08/10/17 09:45; Admin Dose 2.5 MG; Start 08/09/17 at 09:00 Amiodarone HCl (Cordarone) 200 mg BID PO Last administered on 08/10/17 13:59 ; Admin Dose 200 MG; Start 08/10/17 at 12:31 KEYSHAWN RINALDI MD Aug 10, 2017 14:59
--- NOTE | 2017-08-10 16:10 | RADRPT ---
Vent Rate: 64 bpm RR Interval: 0 msec [place] Interval: 182 msec QRS Duration: 98 msec QT Interval: 438 msec QTC Interval: 451 msec P-R-T [place]: 36 - -12 - 51 degrees Normal sinus rhythm Normal ECG Electronically Signed By: Tano Nelson [id number]
[2017-08-10] MEDS: EPOETIN 10000 UNITS/1 ML INJ (ESRD) SC SCH (22:25)
[2017-08-11] VITALS (20 sets, daily range): BP systolic 132–176; BP diastolic 64–80; PULSE 64–123; RESP 18–20
[2017-08-11 06:39] LABS: BASOPHILS % 0.3 % (0.0-2.0); EOSINOPHILS # 0.3 10^3/ul (0.0-0.5); EOSINOPHILS % 3.9 % (0.0-7.0); HEMATOCRIT 28.8 % (42.0-52.0); HEMOGLOBIN 9.9 g/dl (14.0-18.0); LYMPHOCYTES % 11.4 % (15.0-51.0); MEAN CORPUSCULAR HEMOGLOBIN 31.9 pg (29.0-33.0); MEAN CORPUSCULAR HGB CONC 34.4 g/dl (32.0-37.0); MEAN CORPUSCULAR VOLUME 92.9 fl (82.0-101.0); MEAN PLATELET VOLUME 9.7 fl (7.4-10.4); MONOCYTE # 0.7 10^3/ul (0.3-0.9); MONOCYTES % 7.7 % (0.0-11.0); NEUTROPHIL # 6.6 10^3/ul (1.6-7.5); NEUTROPHILS % 76.4 % (39.0-77.0); PLATELET COUNT 190 10^3/UL (140-415); RED CELL DISTRIBUTION WIDTH 13.2 % (11.5-14.5); WHITE BLOOD COUNT 8.6 10^3/ul (4.8-10.8)
[2017-08-11 07:01] LABS: CALCIUM 7.9 mg/dl (8.4-10.2); CREATININE 8.85 mg/dl (0.61-1.24); MAGNESIUM 1.7 mg/dl (1.7-2.5); PHOSPHORUS 7.4 mg/dl (2.5-4.9)
[2017-08-11] MEDS: LEVOTHYROXINE 50 MCG TAB PO SCH (07:01)
[2017-08-11 07:16] LABS: POTASSIUM 5.4 mmol/L (3.5-5.1)
[2017-08-11] MEDS: ALBUTEROL/IPRATROPIUM (NEB) 3 ML AMP HHN SCH ×3 (07:49→19:01)
[2017-08-11] MEDS: APIXABAN 5 MG TABLET PO SCH ×2 (08:43→20:26)
[2017-08-11] MEDS: MULTIVIT/CA CARB/B CMPLX/FA TAB PO SCH (08:43)
[2017-08-11] MEDS: AMIODARONE 200 MG TAB PO SCH ×2 (08:45→20:27)
[2017-08-11] MEDS: METOPROLOL 50 MG TAB PO SCH ×2 (08:46→20:27)
--- NOTE | 2017-08-11 08:58 | CONS ---
Date/Time of Note Date/Time of Note DATE: 08/11/17 TIME: 08:56 Assessment/Plan Assessment/Plan Additional Assessment/Plan 1. Paroxysmal atrial fibrillation with rapid response - NOW IN a. fib with RVR again with HD - will load amio gtt now and likely keep on amio po to follow - HOLD D/c now.CONVERTED TO SINUS -loaded with amio IV - will convert to po now. IN sinus - tolerated po amio well. 2. Hypertension, under reasonable control- improved with HD. Tolerated well besides a. fib. NOw back to sinus. 3. Abnormal electrocardiogram with nonspecific ST-T abnormalities. Assess for acute coronary syndrome. Possibly provoked in the setting of atrial fibrillation with rapid ventricular response. 4. End-stage renal disease, hemodialysis today - if satble post, likely d/c. 5. Hypothyroidism. 6. Possible pneumonia- rx with anti-Bx. 7. Hyperkalemia. 8. Hyponatremia. 9. Anemia. Consultation Date/Type/Reason Admit Date/Time Aug 07, 2017 at 17:08 Type of Consultation: Nephrology 24 HR Interval Summary Free Text/Dictation NO acute events - BP in good range -no CP now - doubt ischemia. ROS: No fever, no chills, no nausea, no vomiting, no diarrhea/constipation No recent weight changes No chest pain, no PND, no orthopnea - some SOB, better No dizziness, blurred vision No thirst, no heat or cold intolerance Exam/Review of Systems Vital Signs Vitals Vital Signs Date Time Temp Pulse Resp B/P Pulse Ox O2 Delivery O2 Flow Rate FiO2 08/11/17 08:11 98.0 69 18 164/80 96 08/11/17 07:51 21 08/11/17 06:00 Room Air Intake and Output 08/10/17 08/10/17 08/11/17 15:00 23:00 07:00 Intake Total 200 ml 400 ml 200 ml Balance 200 ml 400 ml 200 ml Exam General: WN/WD/NAD, AOx 3 HEENT: Unicetric/atraumatic/EOMI (follows commands) NECK: JVD elevated, no thyromegaly Lymph: no lymphadenopathy HEART: regular with no S3, II/ systolic murmur at apex LUNGS: Coarse sounds - mild wheezing ABD: soft, NT, ND, +BS : Intact Neuro: non focal SKIN: chronic changes EXT: trace edema Results Result Diagram: 08/11/17 0553 08/11/17 0553 Results 24 hrs Laboratory Tests Test 08/11/17 05:53 White Blood Count 8.6 # Red Blood Count 3.10 L Hemoglobin 9.9 L Hematocrit 28.8 L Mean Corpuscular Volume 92.9 Mean Corpuscular Hemoglobin 31.9 Mean Corpuscular Hemoglobin Concent 34.4 Red Cell Distribution Width 13.2 Platelet Count 190 Mean Platelet Volume 9.7 Neutrophils % 76.4 Lymphocytes % 11.4 L Monocytes % 7.7 Eosinophils % 3.9 Basophils % 0.3 Nucleated Red Blood Cells % 0.0 Neutrophils # 6.6 Lymphocytes # 1.0 Monocytes # 0.7 Eosinophils # 0.3 Basophils # 0.0 Nucleated Red Blood Cells # 0.0 Sodium Level 131 L Potassium Level 5.4 H Chloride Level 90 L Carbon Dioxide Level 23 Anion Gap 23 H Blood Urea Nitrogen 62 H Creatinine 8.85 H Glucose Level 102 Calcium Level 7.9 L Phosphorus Level 7.4 H Magnesium Level 1.7 Medications Medications Current Medications Lorazepam (Ativan) 0.5 mg Q8H PRN PO ANXIETY; Start 08/07/17 at 18:30 Ondansetron HCl (Zofran Inj) 4 mg Q6H PRN IV NAUSEA AND/OR VOMITING; Start at 18:30 Acetaminophen (Tylenol Tab) 650 mg Q6H PRN PO PAIN LEVEL 1-3 OR FEVER; Start 08/07/17 at 18:30 Acetaminophen/ Hydrocodone Bitart ([place] (5/325)) 1 tab Q6H PRN PO PAIN LEVEL 4 -6; Start 08/07/17 at 18:30 Morphine Sulfate (morphine) 2 mg Q4H PRN IV PAIN LEVEL 7-10; Start 08/07/17 at 18:30 Docusate Sodium (Colace) 100 mg Q12H PRN PO CONSTIPATION; Start 08/07/17 at 18 :30 Bisacodyl (Dulcolax) 5 mg DAILY PRN PO CONSTIPATION; Start 08/07/17 at 18:30 Hydralazine HCl (Apresoline) 50 mg Q8 PO Last administered on 08/11/17t 07:02 ; Admin Dose 50 MG; Start 08/07/17 at 22:00 Metoprolol Tartrate (Lopressor) 50 mg BID PO Last administered on 08/10/17 22 :22; Admin Dose 50 MG; Start 08/07/17 at 21:00 Hydralazine HCl (Apresoline) 10 mg Q4H PRN IV sbp>160 Last administered on 18:04; Admin Dose 10 MG; Start 08/07/17 at 19:00 Labetalol HCl (Labetalol) 10 mg Q4 PRN IV sbp>160; Start 08/07/17 at 19:00 Multivit/Ca Carb/ B Cmplx/FA/Prenat (Elena-Loretta) 1 tab DAILY PO Last administered on 08/11/17 08:43; Admin Dose 1 TAB; Start 08/08/17 at 09:00 Epoetin Devin (Epogen (Esrd)) 10,000 units MoWeFr@17 SC Last administered on 22:25; Admin Dose 10,000 UNITS; Start 08/08/17 at 17:00 Metoprolol Tartrate (Lopressor) 5 mg Q4H PRN IV HR>110 Hold SBP<100 Last administered on 08/09/17 11:58; Admin Dose 5 MG; Start 08/08/17 at 19:30 Apixaban (Eliquis) 2.5 mg BID PO Last administered on 08/11/17 08:43; Admin Dose 2.5 MG; Start 08/09/17 at 09:00 Amiodarone HCl (Cordarone) 200 mg BID PO Last administered on 08/10/17 22:23 ; Admin Dose 200 MG; Start 08/10/17 at 12:31 KEYSHAWN RINALDI MD Aug 11, 2017 08:58
[2017-08-11] MEDS ORDERED: AMIO200T2 PO (09:01)
--- NOTE | 2017-08-11 12:22 | PN ---
Date/Time of Note Date/Time of Note DATE: 08/11/17 TIME: 12:20 Assessment/Plan VTE Prophylaxis VTE Prophylaxis Intervention: ambulation, SCD's Lines/Catheters IV Catheter Type (from Nrs): Saline Lock Urinary Cath still in place: No Assessment/Plan Chief Complaint/Hosp Course s: 11.22 no acute change, resting comfortably 11.23 no acute change 11.24 back to a-fib rvr last night, currently back in NSR 11.25 no acute changes o: Physical exam General: Patient is laying in bed and answers questions appropriately Mentation: Patient is alert and oriented 4, Head: Normocephalic atraumatic Eyes: EOMI, pupils reactive to light Neck: Supple, nontender, midline Respiratory: coarse to auscultation bilaterally, mild wheezing Cardiovascular: regular rate, no obvious murmurs Gastrointestinal: non-tender to palpation, bowel sounds heard. 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 Hypertension -Continue hydralazine and metoprolol dispo: -DC today after dialysis, HTN/wheezing noted today likely volume overload, in need of dialysis Problems: Exam/Review of Systems Vital Signs Vitals Vital Signs Date Time Temp Pulse Resp B/P Pulse Ox O2 Delivery O2 Flow Rate FiO2 08/11/17 12:00 64 08/11/17 11:57 98.2 18 145/74 98 08/11/17 07:51 21 08/11/17 06:00 Room Air Intake and Output 08/10/17 08/10/17 08/11/17 15:00 23:00 07:00 Intake Total 200 ml 400 ml 200 ml Balance 200 ml 400 ml 200 ml Results Result Diagram: 08/11/17 0553 08/11/17 0553 Results 24 hrs Laboratory Tests Test 08/11/17 05:53 White Blood Count 8.6 # Red Blood Count 3.10 L Hemoglobin 9.9 L Hematocrit 28.8 L Mean Corpuscular Volume 92.9 Mean Corpuscular Hemoglobin 31.9 Mean Corpuscular Hemoglobin Concent 34.4 Red Cell Distribution Width 13.2 Platelet Count 190 Mean Platelet Volume 9.7 Neutrophils % 76.4 Lymphocytes % 11.4 L Monocytes % 7.7 Eosinophils % 3.9 Basophils % 0.3 Nucleated Red Blood Cells % 0.0 Neutrophils # 6.6 Lymphocytes # 1.0 Monocytes # 0.7 Eosinophils # 0.3 Basophils # 0.0 Nucleated Red Blood Cells # 0.0 Sodium Level 131 L Potassium Level 5.4 H Chloride Level 90 L Carbon Dioxide Level 23 Anion Gap 23 H Blood Urea Nitrogen 62 H Creatinine 8.85 H Glucose Level 102 Calcium Level 7.9 L Phosphorus Level 7.4 H Magnesium Level 1.7 Medications Medications Current Medications Lorazepam (Ativan) 0.5 mg Q8H PRN PO ANXIETY; Start 08/07/17 at 18:30 Ondansetron HCl (Zofran Inj) 4 mg Q6H PRN IV NAUSEA AND/OR VOMITING; Start at 18:30 Acetaminophen (Tylenol Tab) 650 mg Q6H PRN PO PAIN LEVEL 1-3 OR FEVER; Start 08/07/17 at 18:30 Acetaminophen/ Hydrocodone Bitart ([place] (5/325)) 1 tab Q6H PRN PO PAIN LEVEL 4 -6; Start 08/07/17 at 18:30 Morphine Sulfate (morphine) 2 mg Q4H PRN IV PAIN LEVEL 7-10; Start 08/07/17 at 18:30 Docusate Sodium (Colace) 100 mg Q12H PRN PO CONSTIPATION; Start 08/07/17 at 18 :30 Bisacodyl (Dulcolax) 5 mg DAILY PRN PO CONSTIPATION; Start 08/07/17 at 18:30 Hydralazine HCl (Apresoline) 50 mg Q8 PO Last administered on 08/11/17 07:02 ; Admin Dose 50 MG; Start 08/07/17 at 22:00 Metoprolol Tartrate (Lopressor) 50 mg BID PO Last administered on 08/10/17 22 :22; Admin Dose 50 MG; Start 08/07/17 at 21:00 Hydralazine HCl (Apresoline) 10 mg Q4H PRN IV sbp>160 Last administered on 18:04; Admin Dose 10 MG; Start 08/07/17 at 19:00 Labetalol HCl (Labetalol) 10 mg Q4 PRN IV sbp>160; Start 08/07/17 at 19:00 Multivit/Ca Carb/ B Cmplx/FA/Prenat (Elena-Loretta) 1 tab DAILY PO Last administered on 08/11/17 08:43; Admin Dose 1 TAB; Start 08/08/17 at 09:00 Epoetin Devin (Epogen (Esrd)) 10,000 units MoWeFr@17 SC Last administered on 22:25; Admin Dose 10,000 UNITS; Start 08/08/17 at 17:00 Metoprolol Tartrate (Lopressor) 5 mg Q4H PRN IV HR>110 Hold SBP<100 Last administered on 08/09/17 11:58; Admin Dose 5 MG; Start 08/08/17 at 19:30 Apixaban (Eliquis) 2.5 mg BID PO Last administered on 08/11/17 08:43; Admin Dose 2.5 MG; Start 08/09/17 at 09:00 Amiodarone HCl (Cordarone) 200 mg BID PO Last administered on 08/10/17 22:23 ; Admin Dose 200 MG; Start 08/10/17 at 12:31 RENNY ESQUIVEL Aug 11, 2017 12:22
--- NOTE | 2017-08-11 12:56 | CONS ---
Date/Time of Note Date/Time of Note DATE: 08/11/17 TIME: 12:55 Assessment/Plan Assessment/Plan Additional Assessment/Plan 1. Paroxysmal atrial fibrillation with rapid response, now in NSR 2. Hypertension, contolled 3. Abnormal electrocardiogram with nonspecific ST-T abnormalities. Assess for acute coronary syndrome. Possibly provoked in the setting of atrial fibrillation with rapid ventricular response. 4. End-stage renal disease. HD today. 5. Hypothyroidism.on replacement 6. Possible pneumonia- rx with anti-Bx. ct with multiple nodules and bronchiectasis 7. Anemia: epogen prn to keep hb> 10. Consultation Date/Type/Reason Admit Date/Time Aug 07, 2017 at 17:08 Type of Consultation: Nephrology 24 HR Interval Summary Free Text/Dictation Seen on dialysis. Denies CP or SOB Exam/Review of Systems Vital Signs Vitals Vital Signs Date Time Temp Pulse Resp B/P Pulse Ox O2 Delivery O2 Flow Rate FiO2 08/11/17 12:52 88 08/11/17 11:57 98.2 18 145/74 98 08/11/17 07:51 21 08/11/17 06:00 Room Air Intake and Output 08/10/17 08/10/17 08/11/17 15:00 23:00 07:00 Intake Total 200 ml 400 ml 200 ml Balance 200 ml 400 ml 200 ml Exam Head: normocephalic Neck: supple, No jvd Respiratory: clear to auscultation Cardiovascular: regular rate and rhythm Gastrointestinal: soft Extremities: No edema Results Result Diagram: 08/11/17 0553 08/11/17 0553 Results 24 hrs Laboratory Tests Test 08/11/17 05:53 White Blood Count 8.6 # Red Blood Count 3.10 L Hemoglobin 9.9 L Hematocrit 28.8 L Mean Corpuscular Volume 92.9 Mean Corpuscular Hemoglobin 31.9 Mean Corpuscular Hemoglobin Concent 34.4 Red Cell Distribution Width 13.2 Platelet Count 190 Mean Platelet Volume 9.7 Neutrophils % 76.4 Lymphocytes % 11.4 L Monocytes % 7.7 Eosinophils % 3.9 Basophils % 0.3 Nucleated Red Blood Cells % 0.0 Neutrophils # 6.6 Lymphocytes # 1.0 Monocytes # 0.7 Eosinophils # 0.3 Basophils # 0.0 Nucleated Red Blood Cells # 0.0 Sodium Level 131 L Potassium Level 5.4 H Chloride Level 90 L Carbon Dioxide Level 23 Anion Gap 23 H Blood Urea Nitrogen 62 H Creatinine 8.85 H Glucose Level 102 Calcium Level 7.9 L Phosphorus Level 7.4 H Magnesium Level 1.7 Medications Medications Current Medications Lorazepam (Ativan) 0.5 mg Q8H PRN PO ANXIETY; Start 08/07/17 at 18:30 Ondansetron HCl (Zofran Inj) 4 mg Q6H PRN IV NAUSEA AND/OR VOMITING; Start at 18:30 Acetaminophen (Tylenol Tab) 650 mg Q6H PRN PO PAIN LEVEL 1-3 OR FEVER; Start 08/07/17 at 18:30 Acetaminophen/ Hydrocodone Bitart ([place] (5/325)) 1 tab Q6H PRN PO PAIN LEVEL 4 -6; Start 08/07/17 at 18:30 Morphine Sulfate (morphine) 2 mg Q4H PRN IV PAIN LEVEL 7-10; Start 08/07/17 at 18:30 Docusate Sodium (Colace) 100 mg Q12H PRN PO CONSTIPATION; Start 08/07/17 at 18 :30 Bisacodyl (Dulcolax) 5 mg DAILY PRN PO CONSTIPATION; Start 08/07/17 at 18:30 Hydralazine HCl (Apresoline) 50 mg Q8 PO Last administered on 08/11/17 07:02 ; Admin Dose 50 MG; Start 08/07/17 at 22:00 Metoprolol Tartrate (Lopressor) 50 mg BID PO Last administered on 08/10/17 22 :22; Admin Dose 50 MG; Start 08/07/17 at 21:00 Hydralazine HCl (Apresoline) 10 mg Q4H PRN IV sbp>160 Last administered on 18:04; Admin Dose 10 MG; Start 08/07/17 at 19:00 Labetalol HCl (Labetalol) 10 mg Q4 PRN IV sbp>160; Start 08/07/17 at 19:00 Multivit/Ca Carb/ B Cmplx/FA/Prenat (Elena-Loretta) 1 tab DAILY PO Last administered on 08/11/17 08:43; Admin Dose 1 TAB; Start 08/08/17 at 09:00 Epoetin Devin (Epogen (Esrd)) 10,000 units MoWeFr@17 SC Last administered on 22:25; Admin Dose 10,000 UNITS; Start 08/08/17 at 17:00 Metoprolol Tartrate (Lopressor) 5 mg Q4H PRN IV HR>110 Hold SBP<100 Last administered on 08/09/17 11:58; Admin Dose 5 MG; Start 08/08/17 at 19:30 Apixaban (Eliquis) 2.5 mg BID PO Last administered on 08/11/17 08:43; Admin Dose 2.5 MG; Start 08/09/17 at 09:00 Amiodarone HCl (Cordarone) 200 mg BID PO Last administered on 08/10/17 22:23 ; Admin Dose 200 MG; Start 08/10/17 at 12:31 KARI MIGUEL MD Aug 11, 2017 12:56
[2017-08-11] MEDS ORDERED: AMIODARONE 900 MG in DEXTROSE 5% 482 ML IV SCH (16:30)
[2017-08-12] VITALS (14 sets, daily range): BP systolic 121–170; BP diastolic 58–70; PULSE 55–97; RESP 18–21
[2017-08-12] MEDS: LEVOTHYROXINE 50 MCG TAB PO SCH (06:43)
[2017-08-12] MEDS: ALBUTEROL/IPRATROPIUM (NEB) 3 ML AMP HHN SCH ×3 (08:39→19:04)
[2017-08-12] MEDS: MULTIVIT/CA CARB/B CMPLX/FA TAB PO SCH (09:02)
[2017-08-12] MEDS: APIXABAN 5 MG TABLET PO SCH ×2 (09:02→20:53)
--- NOTE | 2017-08-12 09:13 | CONS ---
Date/Time of Note Date/Time of Note DATE: 08/12/17 TIME: 09:12 Assessment/Plan Assessment/Plan Additional Assessment/Plan 1. Paroxysmal atrial fibrillation with rapid response - NOW IN a. fib with RVR again with HD - will load amio gtt now and likely keep on amio po to follow - HOLD D/c now.CONVERTED TO SINUS -loaded with amio IV - will convert to po now. IN sinus - tolerated po amio well. ANOTHER episode of a. fib with HD - will re- load amiodarone - outpt evaluation for ablation advised. 2. Hypertension, under reasonable control- improved with HD. Tolerated well besides a. fib. NOw back to sinus. NOW IN SINUS. 3. Abnormal electrocardiogram with nonspecific ST-T abnormalities. Assess for acute coronary syndrome. Possibly provoked in the setting of atrial fibrillation with rapid ventricular response. 4. End-stage renal disease, hemodialysis today - if satble post, likely d/c. 5. Hypothyroidism. 6. Possible pneumonia- rx with anti-Bx. 7. Hyperkalemia- Rx with HD. 8. Hyponatremia. 9. Anemia. Consultation Date/Type/Reason Admit Date/Time Aug 07, 2017 at 17:08 Type of Consultation: Nephrology 24 HR Interval Summary Free Text/Dictation ANOTHER episode of a. fib with HD - will re-load amiodarone - outpt evaluation for ablation advised. ROS: No fever, no chills, no nausea, no vomiting, no diarrhea/constipation No recent weight changes No chest pain, no PND, no orthopnea No dizziness, blurred vision No thirst, no heat or cold intolerance Exam/Review of Systems Vital Signs Vitals Vital Signs Date Time Temp Pulse Resp B/P Pulse Ox O2 Delivery O2 Flow Rate FiO2 08/12/17 08:40 74 20 98 21 08/12/17 08:16 98.8 121/58 08/11/17 06:00 Room Air Intake and Output 08/11/17 08/11/17 08/12/17 15:00 23:00 07:00 Intake Total 400 ml 500 ml Output Total 2700 ml Balance -2300 ml 500 ml Exam General: WN/WD/NAD, AOx 3 HEENT: Unicetric/atraumatic/EOMI (follows commands) NECK: JVD elevated, no thyromegaly Lymph: no lymphadenopathy HEART: regular with no S3, II/ systolic murmur at apex LUNGS: Coarse sounds ABD: soft, NT, ND, +BS : Intact Neuro: non focal SKIN: chronic changes EXT: trace edema Results Result Diagram: 08/11/1755208/11/17552 Medications Medications Current Medications Lorazepam (Ativan) 0.5 mg Q8H PRN PO ANXIETY; Start 08/07/17 at 18:30 Ondansetron HCl (Zofran Inj) 4 mg Q6H PRN IV NAUSEA AND/OR VOMITING; Start at 18:30 Acetaminophen (Tylenol Tab) 650 mg Q6H PRN PO PAIN LEVEL 1-3 OR FEVER; Start 08/07/17 at 18:30 Acetaminophen/ Hydrocodone Bitart ([place] (5/325)) 1 tab Q6H PRN PO PAIN LEVEL 4 -6; Start 08/07/17 at 18:30 Morphine Sulfate (morphine) 2 mg Q4H PRN IV PAIN LEVEL 7-10; Start 08/07/17 at 18:30 Docusate Sodium (Colace) 100 mg Q12H PRN PO CONSTIPATION; Start 08/07/17 at 18 :30 Bisacodyl (Dulcolax) 5 mg DAILY PRN PO CONSTIPATION; Start 08/07/17 at 18:30 Hydralazine HCl (Apresoline) 50 mg Q8 PO Last administered on 08/12/17 06:44 ; Admin Dose 50 MG; Start 08/07/17 at 22:00 Metoprolol Tartrate (Lopressor) 50 mg BID PO Last administered on 08/11/17 20 :27; Admin Dose 50 MG; Start 08/07/17 at 21:00 Hydralazine HCl (Apresoline) 10 mg Q4H PRN IV sbp>160 Last administered on 18:04; Admin Dose 10 MG; Start 08/07/17 at 19:00 Labetalol HCl (Labetalol) 10 mg Q4 PRN IV sbp>160; Start 08/07/17 at 19:00 Multivit/Ca Carb/ B Cmplx/FA/Prenat (Elena-Loretta) 1 tab DAILY PO Last administered on 08/12/17 09:02; Admin Dose 1 TAB; Start 08/08/17 at 09:00 Epoetin Devin (Epogen (Esrd)) 10,000 units MoWeFr@17 SC Last administered on 22:25; Admin Dose 10,000 UNITS; Start 08/08/17 at 17:00 Metoprolol Tartrate (Lopressor) 5 mg Q4H PRN IV HR>110 Hold SBP<100 Last administered on 08/09/17 11:58; Admin Dose 5 MG; Start 08/08/17 at 19:30 Apixaban (Eliquis) 2.5 mg BID PO Last administered on 08/12/17 09:02; Admin Dose 2.5 MG; Start 08/09/17 at 09:00 Amiodarone HCl 200 mg 200 mg BID PO Last administered on 08/11/17 20:27; Admin Dose 200 MG; Start 08/10/17 at 12:31 Amiodarone HCl/ Dextrose (Cordarone Iv/ D5W) 500 ml @ 0 mls/hr Q0M IV Last administered on 08/11/17 18:22; Admin Dose 33.4 MLS/HR; Start 08/11/17 at 16: 30; Stop 08/12/17 at 16:29 KEYSHAWN RINALDI MD Aug 12, 2017 09:13
--- NOTE | 2017-08-12 11:33 | PN ---
Date/Time of Note Date/Time of Note DATE: 08/12/17 TIME: : Assessment/Plan VTE Prophylaxis VTE Prophylaxis Intervention: ambulation, SCD's Lines/Catheters IV Catheter Type (from Nrs): Saline Lock Urinary Cath still in place: No Assessment/Plan Chief Complaint/Hosp Course s: 11.22 no acute change, resting comfortably 11. no acute change 11.24 back to a-fib rvr before DC, currently back in NSR 11. no acute changes 11. had another conversion back to a-fib RVR yesterday before DC, had to reload amiodarone. o: Physical exam General: Patient is laying in bed and answers questions appropriately Mentation: Patient is alert and oriented 4, Head: Normocephalic atraumatic Eyes: EOMI, pupils reactive to light Neck: Supple, nontender, midline Respiratory: very mildly coarse to auscultation bilaterally, very mild wheezing Cardiovascular: regular rate, no obvious murmurs Gastrointestinal: non-tender to palpation, bowel sounds heard. 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 Hypertension -Continue hydralazine and metoprolol dispo: -due to multiple attempts at DC, but always going into RVR everyday, patient at very high risk, will monitor and if a-fib RVR free for more than 1 day, will DC -hopeful DC tomorrow, but patient's a-fib has been difficult to treat. -Rx for amio/eliquis with coupon in chart Problems: Exam/Review of Systems Vital Signs Vitals Vital Signs Date Time Temp Pulse Resp B/P Pulse Ox O2 Delivery O2 Flow Rate FiO2 08/12/17 08:40 74 20 98 21 08/12/17 08:16 98.8 121/58 08/11/17 06:00 Room Air Intake and Output 08/11/17 08/11/17 08/12/17 15:00 23:00 07:00 Intake Total 400 ml 500 ml Output Total 2700 ml Balance -2300 ml 500 ml Results Result Diagram: 08/11/17 0553 08/11/1753 Medications Medications Current Medications Lorazepam (Ativan) 0.5 mg Q8H PRN PO ANXIETY; Start 08/07/17 at 18:30 Ondansetron HCl (Zofran Inj) 4 mg Q6H PRN IV NAUSEA AND/OR VOMITING; Start at 18:30 Acetaminophen (Tylenol Tab) 650 mg Q6H PRN PO PAIN LEVEL 1-3 OR FEVER; Start 08/07/17 at 18:30 Acetaminophen/ Hydrocodone Bitart ([place] (5/325)) 1 tab Q6H PRN PO PAIN LEVEL 4 -6; Start 08/07/17 at 18:30 Morphine Sulfate (morphine) 2 mg Q4H PRN IV PAIN LEVEL 7-10; Start 08/07/17 at 18:30 Docusate Sodium (Colace) 100 mg Q12H PRN PO CONSTIPATION; Start 08/07/17 at 18 :30 Bisacodyl (Dulcolax) 5 mg DAILY PRN PO CONSTIPATION; Start 08/07/17 at 18:30 Hydralazine HCl (Apresoline) 50 mg Q8 PO Last administered on 08/12/17 06:44 ; Admin Dose 50 MG; Start 08/07/17 at 22:00 Metoprolol Tartrate (Lopressor) 50 mg BID PO Last administered on 08/11/17 20 :27; Admin Dose 50 MG; Start 08/07/17 at 21:00 Hydralazine HCl (Apresoline) 10 mg Q4H PRN IV sbp>160 Last administered on 18:04; Admin Dose 10 MG; Start 08/07/17 at 19:00 Labetalol HCl (Labetalol) 10 mg Q4 PRN IV sbp>160; Start 08/07/17 at 19:00 Multivit/Ca Carb/ B Cmplx/FA/Prenat (Elena-Loretta) 1 tab DAILY PO Last administered on 08/12/17 09:02; Admin Dose 1 TAB; Start 08/08/17 at 09:00 Epoetin Devin (Epogen (Esrd)) 10,000 units MoWeFr@17 SC Last administered on 22:25; Admin Dose 10,000 UNITS; Start 08/08/17 at 17:00 Metoprolol Tartrate (Lopressor) 5 mg Q4H PRN IV HR>110 Hold SBP<100 Last administered on 08/09/17 11:58; Admin Dose 5 MG; Start 08/08/17 at 19:30 Apixaban (Eliquis) 2.5 mg BID PO Last administered on 08/12/17 09:02; Admin Dose 2.5 MG; Start 08/09/17 at 09:00 Amiodarone HCl 200 mg 200 mg BID PO Last administered on 08/11/17 20:27; Admin Dose 200 MG; Start 08/10/17 at 12:31 Amiodarone HCl/ Dextrose (Cordarone Iv/ D5W) 500 ml @ 0 mls/hr Q0M IV Last administered on 08/11/17 18:22; Admin Dose 33.4 MLS/HR; Start 08/11/17 at 16: 30; Stop 08/12/17 at 16:29 RENNY ESQUIVEL Aug 12, 2017 11:33
[2017-08-12] MEDS: AMIODARONE 200 MG TAB PO SCH ×2 (12:42→20:52)
[2017-08-12] MEDS: METOPROLOL 50 MG TAB PO SCH ×2 (12:43→20:53)
--- NOTE | 2017-08-12 14:25 | CONS ---
Date/Time of Note Date/Time of Note DATE: 08/12/17 TIME: 14:25 Assessment/Plan Assessment/Plan Chief Complaint/Hosp Course 1. Paroxysmal atrial fibrillation with rapid response. Developed AF again during dialysis yesterday, so was not discharged. Has been in NSR since yesterday am. 2. Hypertension, contolled 3. End-stage renal disease. Next HD will be in 2 days. 4. Hypothyroidism.on replacement 5. Anemia: epogen prn to keep hb> 10 Problems: Consultation Date/Type/Reason Admit Date/Time Aug 07, 2017 at 17:08 Type of Consultation: Nephrology 24 HR Interval Summary Free Text/Dictation alert, no complaints. Exam/Review of Systems Vital Signs Vitals Vital Signs Date Time Temp Pulse Resp B/P Pulse Ox O2 Delivery O2 Flow Rate FiO2 08/12/17 13:29 76 20 98 21 08/12/17 12:11 98.6 134/62 08/11/17 06:00 Room Air Intake and Output 08/11/17 08/11/17 08/12/17 15:00 23:00 07:00 Intake Total 400 ml 500 ml Output Total 2700 ml Balance -2300 ml 500 ml Exam Constitutional: alert Head: atraumatic, normocephalic Neck: supple, No jvd Respiratory: clear to auscultation Cardiovascular: regular rate and rhythm Gastrointestinal: soft Extremities: No edema Results Result Diagram: 08/11/17 0553 08/11/17 0553 Medications Medications Current Medications Lorazepam (Ativan) 0.5 mg Q8H PRN PO ANXIETY; Start 08/07/17 at 18:30 Ondansetron HCl (Zofran Inj) 4 mg Q6H PRN IV NAUSEA AND/OR VOMITING; Start at 18:30 Acetaminophen (Tylenol Tab) 650 mg Q6H PRN PO PAIN LEVEL 1-3 OR FEVER; Start 08/07/17 at 18:30 Acetaminophen/ Hydrocodone Bitart ([place] (5/325)) 1 tab Q6H PRN PO PAIN LEVEL 4 -6; Start 08/07/17 at 18:30 Morphine Sulfate (morphine) 2 mg Q4H PRN IV PAIN LEVEL 7-10; Start 08/07/17 at 18:30 Docusate Sodium (Colace) 100 mg Q12H PRN PO CONSTIPATION; Start 08/07/17 at 18 :30 Bisacodyl (Dulcolax) 5 mg DAILY PRN PO CONSTIPATION; Start 08/07/17 at 18:30 Hydralazine HCl (Apresoline) 50 mg Q8 PO Last administered on 08/12/17 06:44 ; Admin Dose 50 MG; Start 08/07/17 at 22:00 Metoprolol Tartrate (Lopressor) 50 mg BID PO Last administered on 08/12/17 12 :43; Admin Dose 50 MG; Start 08/07/17 at 21:00 Hydralazine HCl (Apresoline) 10 mg Q4H PRN IV sbp>160 Last administered on 18:04; Admin Dose 10 MG; Start 08/07/17 at 19:00 Labetalol HCl (Labetalol) 10 mg Q4 PRN IV sbp>160; Start 08/07/17 at 19:00 Multivit/Ca Carb/ B Cmplx/FA/Prenat ([place]oret[place]) 1 tab DAILY PO Last administered on 08/12/17 09:02; Admin Dose 1 TAB; Start 08/08/17 at 09:00 Epoetin Devin (Epogen (Esrd)) 10,000 units MoWeFr@17 SC Last administered on 22:25; Admin Dose 10,000 UNITS; Start 08/08/17 at 17:00 Metoprolol Tartrate (Lopressor) 5 mg Q4H PRN IV HR>110 Hold SBP<100 Last administered on 08/09/17 11:58; Admin Dose 5 MG; Start 08/08/17 at 19:30 Apixaban (Eliquis) 2.5 mg BID PO Last administered on 08/12/17 09:02; Admin Dose 2.5 MG; Start 08/09/17 at 09:00 Amiodarone HCl 200 mg 200 mg BID PO Last administered on 08/12/17 12:42; Admin Dose 200 MG; Start 08/10/17 at 12:31 Amiodarone HCl/ Dextrose (Cordarone Iv/ D5W) 500 ml @ 0 mls/hr Q0M IV Last administered on 08/11/17 18:22; Admin Dose 33.4 MLS/HR; Start 08/11/17 at 16: 30; Stop 08/12/17 at 16:29 KARI MIGUEL MD Aug 12, 2017 14:25
[2017-08-13] VITALS (11 sets, daily range): BP systolic 151–169; BP diastolic 68–72; PULSE 55–61; RESP 20–21
[2017-08-13] MEDS: LEVOTHYROXINE 50 MCG TAB PO SCH (06:41)
[2017-08-13 07:24] LABS: BASOPHILS % 0.4 % (0.0-2.0); EOSINOPHILS # 0.3 10^3/ul (0.0-0.5); EOSINOPHILS % 4.5 % (0.0-7.0); HEMOGLOBIN 9.7 g/dl (14.0-18.0); LYMPHOCYTES # 1.3 10^3/ul (0.8-2.9); LYMPHOCYTES % 18.3 % (15.0-51.0); MEAN CORPUSCULAR HEMOGLOBIN 32.2 pg (29.0-33.0); MEAN CORPUSCULAR HGB CONC 34.6 g/dl (32.0-37.0); MEAN PLATELET VOLUME 9.8 fl (7.4-10.4); MONOCYTE # 0.7 10^3/ul (0.3-0.9); MONOCYTES % 9.5 % (0.0-11.0); NEUTROPHIL # 4.7 10^3/ul (1.6-7.5); NEUTROPHILS % 67.2 % (39.0-77.0); PLATELET COUNT 185 10^3/UL (140-415); RED BLOOD COUNT 3.01 10^6/ul (4.70-6.10); RED CELL DISTRIBUTION WIDTH 13.1 % (11.5-14.5); WHITE BLOOD COUNT 6.9 10^3/ul (4.8-10.8)
[2017-08-13 07:39] LABS: CALCIUM 7.3 mg/dl (8.4-10.2); CREATININE 8.22 mg/dl (0.61-1.24); MAGNESIUM 1.8 mg/dl (1.7-2.5); PHOSPHORUS 7.7 mg/dl (2.5-4.9); POTASSIUM 4.6 mmol/L (3.5-5.1)
--- NOTE | 2017-08-13 08:00 | CONS ---
Date/Time of Note Date/Time of Note DATE: 08/13/17 TIME: 07:58 Assessment/Plan Assessment/Plan Additional Assessment/Plan 1. Atrial fib with now controlled ventric response on Amiodarone, po meds per cards 2, CKD with next HD planned tomm. 3. Hyponatremia, will red po fluids. Consultation Date/Type/Reason Admit Date/Time Aug 07, 2017 at 17:08 Initial Consult Date Type of Consultation: Nephrology Detailed Summary Respiratory: No shortness of breath Cardiovascular: No chest pain Gastrointestinal: no complaints, No nausea, No pain, No vomiting Exam/Review of Systems Vital Signs Vitals Vital Signs Date Time Temp Pulse Resp B/P Pulse Ox O2 Delivery O2 Flow Rate FiO2 08/13/17 07:54 98.0 59 20 151/72 98 08/12/17 19:04 21 08/11/17 06:00 Room Air Intake and Output 08/12/17 08/12/17 08/13/17 15:00 23:00 07:00 Intake Total 800 ml 700 ml Balance 800 ml 700 ml Exam Neck: No jvd Respiratory: clear to auscultation, diminished breath sounds Cardiovascular: No irregular rhythm Gastrointestinal: soft Extremities: No edema, No tenderness Results Result Diagram: 08/13/17 0634 08/13/17 0634 Results 24 hrs Laboratory Tests Test 08/13/17 06:34 White Blood Count 6.9 Red Blood Count 3.01 L Hemoglobin 9.7 L Hematocrit 28.0 L Mean Corpuscular Volume 93.0 Mean Corpuscular Hemoglobin 32.2 Mean Corpuscular Hemoglobin Concent 34.6 Red Cell Distribution Width 13.1 Platelet Count 185 Mean Platelet Volume 9.8 Neutrophils % 67.2 Lymphocytes % 18.3 Monocytes % 9.5 Eosinophils % 4.5 Basophils % 0.4 Nucleated Red Blood Cells % 0.0 Neutrophils # 4.7 Lymphocytes # 1.3 Monocytes # 0.7 Eosinophils # 0.3 Basophils # 0.0 Nucleated Red Blood Cells # 0.0 Sodium Level 128 L Potassium Level 4.6 Chloride Level 87 L Carbon Dioxide Level 23 Anion Gap 23 H Blood Urea Nitrogen 54 H Creatinine 8.22 H Glucose Level 96 Calcium Level 7.3 L Phosphorus Level 7.7 H Magnesium Level 1.8 Medications Medications Current Medications Lorazepam (Ativan) 0.5 mg Q8H PRN PO ANXIETY; Start 08/07/17 at 18:30 Ondansetron HCl (Zofran Inj) 4 mg Q6H PRN IV NAUSEA AND/OR VOMITING; Start at 18:30 Acetaminophen (Tylenol Tab) 650 mg Q6H PRN PO PAIN LEVEL 1-3 OR FEVER; Start 08/07/17 at 18:30 Acetaminophen/ Hydrocodone Bitart ([place] (5/325)) 1 tab Q6H PRN PO PAIN LEVEL 4 -6; Start 08/07/17 at 18:30 Morphine Sulfate (morphine) 2 mg Q4H PRN IV PAIN LEVEL 7-10; Start 08/07/17 at 18:30 Docusate Sodium (Colace) 100 mg Q12H PRN PO CONSTIPATION; Start 08/07/17 at 18 :30 Bisacodyl (Dulcolax) 5 mg DAILY PRN PO CONSTIPATION; Start 08/07/17 at 18:30 Hydralazine HCl (Apresoline) 50 mg Q8 PO Last administered on 08/13/17 06:40 ; Admin Dose 50 MG; Start 08/07/17 at 22:00 Metoprolol Tartrate (Lopressor) 50 mg BID PO Last administered on 08/12/17 20 :53; Admin Dose 50 MG; Start 08/07/17 at 21:00 Hydralazine HCl (Apresoline) 10 mg Q4H PRN IV sbp>160 Last administered on 18:04; Admin Dose 10 MG; Start 08/07/17 at 19:00 Labetalol HCl (Labetalol) 10 mg Q4 PRN IV sbp>160; Start 08/07/17 at 19:00 Multivit/Ca Carb/ B Cmplx/FA/Prenat (Elena-Loretta) 1 tab DAILY PO Last administered on 08/12/17 09:02; Admin Dose 1 TAB; Start 08/08/17 at 09:00 Epoetin Devin (Epogen (Esrd)) 10,000 units MoWeFr@17 SC Last administered on 22:25; Admin Dose 10,000 UNITS; Start 08/08/17 at 17:00 Metoprolol Tartrate (Lopressor) 5 mg Q4H PRN IV HR>110 Hold SBP<100 Last administered on 08/09/17 11:58; Admin Dose 5 MG; Start 08/08/17 at 19:30 Apixaban (Eliquis) 2.5 mg BID PO Last administered on 08/12/17 20:53; Admin Dose 2.5 MG; Start 08/09/17 at 09:00 Amiodarone HCl (Cordarone) 200 mg BID PO Last administered on 08/12/17 20:52 ; Admin Dose 200 MG; Start 08/10/17 at 12:31 KEYSHAWN UPTON MD Aug 13, 2017 08:00
[2017-08-13] MEDS: ALBUTEROL/IPRATROPIUM (NEB) 3 ML AMP HHN SCH ×3 (08:06→19:56)
[2017-08-13] MEDS: APIXABAN 5 MG TABLET PO SCH ×2 (08:36→21:03)
[2017-08-13] MEDS: MULTIVIT/CA CARB/B CMPLX/FA TAB PO SCH (08:36)
[2017-08-13] MEDS: METOPROLOL 50 MG TAB PO SCH ×2 (08:38→21:04)
[2017-08-13] MEDS: AMIODARONE 200 MG TAB PO SCH ×2 (08:38→21:03)
--- NOTE | 2017-08-13 15:47 | PN ---
Date/Time of Note Date/Time of Note DATE: 08/13/17 TIME: 15:41 Assessment/Plan VTE Prophylaxis VTE Prophylaxis Intervention: other Lines/Catheters IV Catheter Type (from Nrs): [place] Urinary Cath still in place: No Assessment/Plan Assessment/Plan 1. Atrial fibrillation with RVR- improving - Patient continues to convert from afib to RVR to NSR - Cardiology on board and recommendations appreciated - Patient had an episode of walking to bathroom and converting back to afib for about 5 minutes per nursing - Currently on Amiodarone and Eliquis 2. End-stage renal disease - Nephrology on board and recommendations appreciated - HD tues/thurs/sat 3. calcified granuloma and nodules - repeat CT in 12 months recommended 4. Hypothyroidism -TSH mildly elevated, on levothyroxine, continue current dose as T4 is WNL -f/u with primary care provider for repeat TSH and possible adjustment of dose. 5. Hypertension -Continue hydralazine and metoprolol 6. Disposition - Patient had another episode of atrial fibrillation but currently back in sinus rhythm. Will await Cardiology input prior to discharge - Home health arranged and FWW delivered to patient Subjective 24 Hr Interval Summary Free Text/Dictation Patient has no new complaints and tolerated ambulating around floor with no issues with FWW. patient had an episode of atrial fibrillation for 5 minutes when went to restroom but converted back to sinus. Exam/Review of Systems Vital Signs Vitals Vital Signs Date Time Temp Pulse Resp B/P Pulse Ox O2 Delivery O2 Flow Rate FiO2 08/13/17 14:28 58 22 98 21 08/13/17 11:54 98.2 156/68 08/11/17 06:00 Room Air Intake and Output 08/12/17 08/12/17 08/13/17 15:00 23:00 07:00 Intake Total 800 ml 700 ml Balance 800 ml 700 ml Exam General: Patient is laying in bed and answers questions appropriately Mentation: Patient is alert and oriented 4, Neck: Supple, nontender, midline Respiratory: mild crackles to auscultation bilaterally, no wheezes Cardiovascular: regular rate, no obvious murmurs Gastrointestinal: non-tender to palpation, bowel sounds heard. Neurological: Moves all extremities spontaneously Skin: No new skin lesions Results Result Diagram: 08/13/17 0634 08/13/17 0634 Results 24 hrs Laboratory Tests Test 08/13/17 06:34 White Blood Count 6.9 Red Blood Count 3.01 L Hemoglobin 9.7 L Hematocrit 28.0 L Mean Corpuscular Volume 93.0 Mean Corpuscular Hemoglobin 32.2 Mean Corpuscular Hemoglobin Concent 34.6 Red Cell Distribution Width 13.1 Platelet Count 185 Mean Platelet Volume 9.8 Neutrophils % 67.2 Lymphocytes % 18.3 Monocytes % 9.5 Eosinophils % 4.5 Basophils % 0.4 Nucleated Red Blood Cells % 0.0 Neutrophils # 4.7 Lymphocytes # 1.3 Monocytes # 0.7 Eosinophils # 0.3 Basophils # 0.0 Nucleated Red Blood Cells # 0.0 Sodium Level 128 L Potassium Level 4.6 Chloride Level 87 L Carbon Dioxide Level 23 Anion Gap 23 H Blood Urea Nitrogen 54 H Creatinine 8.22 H Glucose Level 96 Calcium Level 7.3 L Phosphorus Level 7.7 H Magnesium Level 1.8 Medications Medications Current Medications Lorazepam (Ativan) 0.5 mg Q8H PRN PO ANXIETY; Start 08/07/17 at 18:30 Ondansetron HCl (Zofran Inj) 4 mg Q6H PRN IV NAUSEA AND/OR VOMITING; Start at 18:30 Acetaminophen (Tylenol Tab) 650 mg Q6H PRN PO PAIN LEVEL 1-3 OR FEVER; Start 08/07/17 at 18:30 Acetaminophen/ Hydrocodone Bitart ([place] (5/325)) 1 tab Q6H PRN PO PAIN LEVEL 4 -6; Start 08/07/17 at 18:30 Morphine Sulfate (morphine) 2 mg Q4H PRN IV PAIN LEVEL 7-10; Start 08/07/17 at 18:30 Docusate Sodium (Colace) 100 mg Q12H PRN PO CONSTIPATION; Start 08/07/17 at 18 :30 Bisacodyl (Dulcolax) 5 mg DAILY PRN PO CONSTIPATION; Start 08/07/17 at 18:30 Hydralazine HCl (Apresoline) 50 mg Q8 PO Last administered on 08/13/17 14:19 ; Admin Dose 50 MG; Start 08/07/17 at 22:00 Metoprolol Tartrate (Lopressor) 50 mg BID PO Last administered on 08/13/17 08 :38; Admin Dose 50 MG; Start 08/07/17 at 21:00 Hydralazine HCl (Apresoline) 10 mg Q4H PRN IV sbp>160 Last administered on 18:04; Admin Dose 10 MG; Start 08/07/17 at 19:00 Labetalol HCl (Labetalol) 10 mg Q4 PRN IV sbp>160; Start 08/07/17 at 19:00 Multivit/Ca Carb/ B Cmplx/FA/Prenat (Elena-Loretta) 1 tab DAILY PO Last administered on 08/13/17 08:36; Admin Dose 1 TAB; Start 08/08/17 at 09:00 Epoetin Devin (Epogen (Esrd)) 10,000 units MoWeFr@17 SC Last administered on 22:25; Admin Dose 10,000 UNITS; Start 08/08/17 at 17:00 Metoprolol Tartrate (Lopressor) 5 mg Q4H PRN IV HR>110 Hold SBP<100 Last administered on 08/09/17 11:58; Admin Dose 5 MG; Start 08/08/17 at 19:30 Apixaban (Eliquis) 2.5 mg BID PO Last administered on 08/13/17 08:36; Admin Dose 2.5 MG; Start 08/09/17 at 09:00 Amiodarone HCl (Cordarone) 200 mg BID PO Last administered on 08/13/17 08:38 ; Admin Dose 200 MG; Start 08/10/17 at 12:31 SEBASTIAN JOSHUA MD Aug 13, 2017 15:47
[2017-08-13] MEDS: EPOETIN 10000 UNITS/1 ML INJ (ESRD) SC SCH (18:24)
--- NOTE | 2017-08-13 20:55 | CONS ---
Date/Time of Note Date/Time of Note DATE: 08/13/17 TIME: 20:48 Assessment/Plan Assessment/Plan Chief Complaint/Hosp Course IMP: 1.PAF-Had epsiode of AF with RVR today to 120 but now back to SR. NL Free t4 2.HTN 3.abnl ecg 4.sob 5. ESRD on HD Recc: -Tele -serial ecg's -Continue eliquis -Continue amiodarone loading and will increase to TID for short term -Continue BB -PRN IVP BB -HD for volume removal Problems: Consultation Date/Type/Reason Admit Date/Time Aug 07, 2017 at 17:08 Initial Consult Date 08/13/2017 Type of Consultation: cardiology Reason for Consultation AF Referring Provider: ASHUTOSH CRISTOBAL Exam/Review of Systems Vital Signs Vitals Vital Signs Date Time Temp Pulse Resp B/P Pulse Ox O2 Delivery O2 Flow Rate FiO2 08/13/17 19:56 61 18 98 Nasal Cannula 2.0 08/13/17 16:04 98.4 152/70 08/13/17 14:28 21 Intake and Output 08/12/17 08/12/17 08/13/17 15:00 23:00 07:00 Intake Total 800 ml 700 ml Balance 800 ml 700 ml Exam Review of Systems: CONSTITUTIONAL: No fevers, chills. PULMONARY: No sob CARDIOVASCULAR: No chest pain/palpitations GASTROINTESTINAL: No nausea/vomiting. GENITOURINARY: No hematuria/dysuria. MUSCULOSKELETAL: No myagias/arthalgias. PSYCHIATRIC: The patient denies depression. NEUROLOGIC: No weakness Constitutional: alert Psych: no complaints Head: normocephalic ENMT: mucosa pink and moist Neck: jvd (9 cm water), supple Respiratory: diminished breath sounds (at bases/B), wheezing (exp) Cardiovascular: other (diminshed BS @ bases/B) Gastrointestinal: non-tender, soft Musculoskeletal: muscle tone (nornmal) Extremities: edema (none) Neurological: other (NO focal deficits) Results Result Diagram: 08/13/17 0634 08/13/17 0634 Results 24 hrs Laboratory Tests Test 08/13/17 06:34 White Blood Count 6.9 Red Blood Count 3.01 L Hemoglobin 9.7 L Hematocrit 28.0 L Mean Corpuscular Volume 93.0 Mean Corpuscular Hemoglobin 32.2 Mean Corpuscular Hemoglobin Concent 34.6 Red Cell Distribution Width 13.1 Platelet Count 185 Mean Platelet Volume 9.8 Neutrophils % 67.2 Lymphocytes % 18.3 Monocytes % 9.5 Eosinophils % 4.5 Basophils % 0.4 Nucleated Red Blood Cells % 0.0 Neutrophils # 4.7 Lymphocytes # 1.3 Monocytes # 0.7 Eosinophils # 0.3 Basophils # 0.0 Nucleated Red Blood Cells # 0.0 Sodium Level 128 L Potassium Level 4.6 Chloride Level 87 L Carbon Dioxide Level 23 Anion Gap 23 H Blood Urea Nitrogen 54 H Creatinine 8.22 H Glucose Level 96 Calcium Level 7.3 L Phosphorus Level 7.7 H Magnesium Level 1.8 Medications Medications Current Medications Lorazepam (Ativan) 0.5 mg Q8H PRN PO ANXIETY; Start 08/07/17 at 18:30 Ondansetron HCl (Zofran Inj) 4 mg Q6H PRN IV NAUSEA AND/OR VOMITING; Start at 18:30 Acetaminophen (Tylenol Tab) 650 mg Q6H PRN PO PAIN LEVEL 1-3 OR FEVER; Start 08/07/17 at 18:30 Acetaminophen/ Hydrocodone Bitart ([place] (5/325)) 1 tab Q6H PRN PO PAIN LEVEL 4 -6; Start 08/07/17 at 18:30 Morphine Sulfate (morphine) 2 mg Q4H PRN IV PAIN LEVEL 7-10; Start 08/07/17 at 18:30 Docusate Sodium (Colace) 100 mg Q12H PRN PO CONSTIPATION; Start 08/07/17 at 18 :30 Bisacodyl (Dulcolax) 5 mg DAILY PRN PO CONSTIPATION; Start 08/07/17 at 18:30 Hydralazine HCl (Apresoline) 50 mg Q8 PO Last administered on 08/13/17 14:19 ; Admin Dose 50 MG; Start 08/07/17 at 22:00 Metoprolol Tartrate (Lopressor) 50 mg BID PO Last administered on 08/13/17 08 :38; Admin Dose 50 MG; Start 08/07/17 at 21:00 Hydralazine HCl (Apresoline) 10 mg Q4H PRN IV sbp>160 Last administered on 18:04; Admin Dose 10 MG; Start 08/07/17 at 19:00 Labetalol HCl (Labetalol) 10 mg Q4 PRN IV sbp>160; Start 08/07/17 at 19:00 Multivit/Ca Carb/ B Cmplx/FA/Prenat (Elena-Loretta) 1 tab DAILY PO Last administered on 08/13/17 08:36; Admin Dose 1 TAB; Start 08/08/17 at 09:00 Epoetin Devin (Epogen (Esrd)) 10,000 units MoWeFr@17 SC Last administered on 18:24; Admin Dose 10,000 UNITS; Start 08/08/17 at 17:00 Metoprolol Tartrate (Lopressor) 5 mg Q4H PRN IV HR>110 Hold SBP<100 Last administered on 08/09/17 11:58; Admin Dose 5 MG; Start 08/08/17 at 19:30 Apixaban (Eliquis) 2.5 mg BID PO Last administered on 08/13/17 08:36; Admin Dose 2.5 MG; Start 08/09/17 at 09:00 Amiodarone HCl (Cordarone) 200 mg BID PO Last administered on 08/13/17 08:38 ; Admin Dose 200 MG; Start 08/10/17 at 12:31 DAWOOD FRANCO 27, 2017 20:55
[2017-08-14] VITALS (21 sets, daily range): BP systolic 120–183; BP diastolic 56–78; PULSE 58–98; RESP 17–20
[2017-08-14] MEDS: LEVOTHYROXINE 50 MCG TAB PO SCH (06:14)
[2017-08-14 06:41] LABS: BASOPHILS % 0.3 % (0.0-2.0); EOSINOPHILS # 0.3 10^3/ul (0.0-0.5); EOSINOPHILS % 4.3 % (0.0-7.0); HEMATOCRIT 27.2 % (42.0-52.0); HEMOGLOBIN 9.5 g/dl (14.0-18.0); LYMPHOCYTES # 0.9 10^3/ul (0.8-2.9); LYMPHOCYTES % 12.6 % (15.0-51.0); MEAN CORPUSCULAR HEMOGLOBIN 32.3 pg (29.0-33.0); MEAN CORPUSCULAR HGB CONC 34.9 g/dl (32.0-37.0); MEAN CORPUSCULAR VOLUME 92.5 fl (82.0-101.0); MEAN PLATELET VOLUME 9.7 fl (7.4-10.4); MONOCYTE # 0.6 10^3/ul (0.3-0.9); MONOCYTES % 8.3 % (0.0-11.0); NEUTROPHILS % 74.2 % (39.0-77.0); PLATELET COUNT 200 10^3/UL (140-415); RED BLOOD COUNT 2.94 10^6/ul (4.70-6.10); RED CELL DISTRIBUTION WIDTH 13.1 % (11.5-14.5); WHITE BLOOD COUNT 6.8 10^3/ul (4.8-10.8)
[2017-08-14 07:14] LABS: CALCIUM 7.1 mg/dl (8.4-10.2); CREATININE 9.64 mg/dl (0.61-1.24); PHOSPHORUS 8.7 mg/dl (2.5-4.9); POTASSIUM 5.2 mmol/L (3.5-5.1)
--- NOTE | 2017-08-14 08:07 | CONS ---
Date/Time of Note Date/Time of Note DATE: 08/14/17 TIME: 08:05 Assessment/Plan Assessment/Plan Additional Assessment/Plan 1. Now in sinus rhythm, eliquis has been continued, po meds per cards and hopeful dc today if rhythm remains stable. 2. CKD to be dilayzed today 3. Anemia is stable. 4. BP is controlled Consultation Date/Type/Reason Admit Date/Time Aug 07, 2017 at 17:08 Type of Consultation: cardiology Referring Provider: ASHUTOSH CRISTOBAL Detailed Summary Respiratory: shortness of breath Cardiovascular: No chest pain Gastrointestinal: no complaints Genitourinary: no complaints Exam/Review of Systems Vital Signs Vitals Vital Signs Date Time Temp Pulse Resp B/P Pulse Ox O2 Delivery O2 Flow Rate FiO2 08/14/17 04:02 66 08/14/17 04:00 98.2 20 120/58 20 08/14/17 03:19 2.0 08/13/17 20:00 Nasal Cannula 08/13/17 14:28 21 Intake and Output 08/13/17 08/13/17 08/14/17 14:59 22:59 06:59 Intake Total 200 ml Balance 200 ml Exam Neck: No jvd Respiratory: clear to auscultation Gastrointestinal: soft Extremities: No edema (and no calf tend) Results Result Diagram: 08/14/17 0553 08/14/17 0553 Results 24 hrs Laboratory Tests Test 08/14/17 05:53 White Blood Count 6.8 Red Blood Count 2.94 L Hemoglobin 9.5 L Hematocrit 27.2 L Mean Corpuscular Volume 92.5 Mean Corpuscular Hemoglobin 32.3 Mean Corpuscular Hemoglobin Concent 34.9 Red Cell Distribution Width 13.1 Platelet Count 200 Mean Platelet Volume 9.7 Neutrophils % 74.2 Lymphocytes % 12.6 L Monocytes % 8.3 Eosinophils % 4.3 Basophils % 0.3 Nucleated Red Blood Cells % 0.0 Neutrophils # 5.0 Lymphocytes # 0.9 Monocytes # 0.6 Eosinophils # 0.3 Basophils # 0.0 Nucleated Red Blood Cells # 0.0 Sodium Level 129 L Potassium Level 5.2 H Chloride Level 87 L Carbon Dioxide Level 24 Anion Gap 23 H Blood Urea Nitrogen 66 H Creatinine 9.64 H Glucose Level 93 Calcium Level 7.1 L Phosphorus Level 8.7 H Magnesium Level 1.8 Medications Medications Current Medications Lorazepam (Ativan) 0.5 mg Q8H PRN PO ANXIETY; Start 08/07/17 at 18:30 Ondansetron HCl (Zofran Inj) 4 mg Q6H PRN IV NAUSEA AND/OR VOMITING; Start at 18:30 Acetaminophen (Tylenol Tab) 650 mg Q6H PRN PO PAIN LEVEL 1-3 OR FEVER; Start 08/07/17 at 18:30 Acetaminophen/ Hydrocodone Bitart ([place] (5/325)) 1 tab Q6H PRN PO PAIN LEVEL 4 -6; Start 08/07/17 at 18:30 Morphine Sulfate (morphine) 2 mg Q4H PRN IV PAIN LEVEL 7-10; Start 08/07/17 at 18:30 Docusate Sodium (Colace) 100 mg Q12H PRN PO CONSTIPATION; Start 08/07/17 at 18 :30 Bisacodyl (Dulcolax) 5 mg DAILY PRN PO CONSTIPATION; Start 08/07/17 at 18:30 Hydralazine HCl (Apresoline) 50 mg Q8 PO Last administered on 08/14/17 06:15 ; Admin Dose 50 MG; Start 08/07/17 at 22:00 Metoprolol Tartrate (Lopressor) 50 mg BID PO Last administered on 08/13/17 21 :04; Admin Dose 50 MG; Start 08/07/17 at 21:00 Hydralazine HCl (Apresoline) 10 mg Q4H PRN IV sbp>160 Last administered on 18:04; Admin Dose 10 MG; Start 08/07/17 at 19:00 Labetalol HCl (Labetalol) 10 mg Q4 PRN IV sbp>160; Start 08/07/17 at 19:00 Multivit/Ca Carb/ B Cmplx/FA/Prenat (Elena-Loretta) 1 tab DAILY PO Last administered on 08/13/17 08:36; Admin Dose 1 TAB; Start 08/08/17 at 09:00 Epoetin Devin (Epogen (Esrd)) 10,000 units MoWeFr@17 SC Last administered on 18:24; Admin Dose 10,000 UNITS; Start 08/08/17 at 17:00 Metoprolol Tartrate (Lopressor) 5 mg Q4H PRN IV HR>110 Hold SBP<100 Last administered on 08/09/17 11:58; Admin Dose 5 MG; Start 08/08/17 at 19:30 Apixaban (Eliquis) 2.5 mg BID PO Last administered on 08/13/17 21:03; Admin Dose 2.5 MG; Start 08/09/17 at 09:00 Amiodarone HCl (Cordarone) 200 mg TID PO Last administered on 08/13/17 21:03 ; Admin Dose 200 MG; Start 08/13/17 at 21:00 KEYSHAWN UPTON MD Aug 14, 2017 08:07
[2017-08-14] MEDS: ALBUTEROL/IPRATROPIUM (NEB) 3 ML AMP HHN SCH ×3 (08:08→20:16)
[2017-08-14] MEDS: METOPROLOL 50 MG TAB PO SCH (08:40)
[2017-08-14] MEDS: AMIODARONE 200 MG TAB PO SCH ×2 (08:40→13:06)
[2017-08-14] MEDS: APIXABAN 5 MG TABLET PO SCH (08:42)
[2017-08-14] MEDS: MULTIVIT/CA CARB/B CMPLX/FA TAB PO SCH (08:42)
--- NOTE | 2017-08-14 11:28 | PN ---
Date/Time of Note Date/Time of Note DATE: 08/14/17 TIME: 11:24 Assessment/Plan VTE Prophylaxis VTE Prophylaxis Intervention: SCD's Lines/Catheters IV Catheter Type (from [facility]): Saline Lock Urinary Cath still in place: No Assessment/Plan Assessment/Plan 1. Atrial fibrillation with RVR- stable - Patient did not have any further episodes of afib with RVR. Remains in NSR - Amiodarone increased to TID yesterday per Cardiology - Currently on Amiodarone and Eliquis 2. End-stage renal disease - Nephrology on board and recommendations appreciated - HD tues/th/sun. Due for HD today and will d/c after if no acute issues arise 3. Calcified granuloma and nodules - will need repeat CT in 12 months 4. Hypothyroidism -TSH mildly elevated, on levothyroxine, continue current dose as T4 is WNL -f/u with primary care provider for repeat TSH and possible adjustment of dose. 5. Hypertension -Continue hydralazine and metoprolol 6. Disposition - Due for HD today. if no acute issues will d/c after Subjective 24 Hr Interval Summary Free Text/Dictation Patient doing well and has no new complaints. No acute overnight events or further episodes of Afib with RVR. Exam/Review of Systems Vital Signs Vitals Vital Signs Date Time Temp Pulse Resp B/P Pulse Ox O2 Delivery O2 Flow Rate FiO2 08/14/17 08:30 Nasal Cannula 2.0 08/14/17 08:10 59 08/14/17 08:08 20 92 08/14/17 08:02 98.1 157/74 08/13/17 14:28 21 Intake and Output 08/13/17 08/13/17 08/14/17 15:00 23:00 07:00 Intake Total 200 ml Balance 200 ml Exam General: Patient is laying in bed and answers questions appropriately. in no acute distress Mentation: Patient is alert and oriented 4, Neck: Supple, nontender, midline Respiratory: diminished breath sounds bases with faint crackles, no wheezes Cardiovascular: regular rate and rhythm, no obvious murmurs Gastrointestinal: non-tender to palpation, bowel sounds heard. Neurological: Moves all extremities spontaneously Skin: No new skin lesions Results Result Diagram: 08/14/17 0553 08/14/17 0553 Results 24 hrs Laboratory Tests Test 08/14/17 05:53 White Blood Count 6.8 Red Blood Count 2.94 L Hemoglobin 9.5 L Hematocrit 27.2 L Mean Corpuscular Volume 92.5 Mean Corpuscular Hemoglobin 32.3 Mean Corpuscular Hemoglobin Concent 34.9 Red Cell Distribution Width 13.1 Platelet Count 200 Mean Platelet Volume 9.7 Neutrophils % 74.2 Lymphocytes % 12.6 L Monocytes % 8.3 Eosinophils % 4.3 Basophils % 0.3 Nucleated Red Blood Cells % 0.0 Neutrophils # 5.0 Lymphocytes # 0.9 Monocytes # 0.6 Eosinophils # 0.3 Basophils # 0.0 Nucleated Red Blood Cells # 0.0 Sodium Level 129 L Potassium Level 5.2 H Chloride Level 87 L Carbon Dioxide Level 24 Anion Gap 23 H Blood Urea Nitrogen 66 H Creatinine 9.64 H Glucose Level 93 Calcium Level 7.1 L Phosphorus Level 8.7 H Magnesium Level 1.8 Medications Medications Current Medications Lorazepam (Ativan) 0.5 mg Q8H PRN PO ANXIETY; Start 08/07/17 at 18:30 Ondansetron HCl (Zofran Inj) 4 mg Q6H PRN IV NAUSEA AND/OR VOMITING; Start at 18:30 Acetaminophen (Tylenol Tab) 650 mg Q6H PRN PO PAIN LEVEL 1-3 OR FEVER; Start 08/07/17 at 18:30 Acetaminophen/ Hydrocodone Bitart ([place] (5/325)) 1 tab Q6H PRN PO PAIN LEVEL 4 -6; Start 08/07/17 at 18:30 Morphine Sulfate (morphine) 2 mg Q4H PRN IV PAIN LEVEL 7-10; Start 08/07/17 at 18:30 Docusate Sodium (Colace) 100 mg Q12H PRN PO CONSTIPATION; Start 08/07/17 at 18 :30 Bisacodyl (Dulcolax) 5 mg DAILY PRN PO CONSTIPATION; Start 08/07/17 at 18:30 Hydralazine HCl (Apresoline) 50 mg Q8 PO Last administered on 08/14/17 06:15 ; Admin Dose 50 MG; Start 08/07/17 at 22:00 Metoprolol Tartrate (Lopressor) 50 mg BID PO Last administered on 08/13/17 21 :04; Admin Dose 50 MG; Start 08/07/17 at 21:00 Hydralazine HCl (Apresoline) 10 mg Q4H PRN IV sbp>160 Last administered on 18:04; Admin Dose 10 MG; Start 08/07/17 at 19:00 Labetalol HCl (Labetalol) 10 mg Q4 PRN IV sbp>160; Start 08/07/17 at 19:00 Multivit/Ca Carb/ B Cmplx/FA/Prenat ([place]len[place]-Loretta) 1 tab DAILY PO Last administered on 08/14/17 08:42; Admin Dose 1 TAB; Start 08/08/17 at 09:00 Epoetin Devin (Epogen (Esrd)) 10,000 units MoWeFr@17 SC Last administered on 18:24; Admin Dose 10,000 UNITS; Start 08/08/17 at 17:00 Metoprolol Tartrate (Lopressor) 5 mg Q4H PRN IV HR>110 Hold SBP<100 Last administered on 08/09/17 11:58; Admin Dose 5 MG; Start 08/08/17 at 19:30 Apixaban (Eliquis) 2.5 mg BID PO Last administered on 08/14/17 08:42; Admin Dose 2.5 MG; Start 08/09/17 at 09:00 Amiodarone HCl (Cordarone) 200 mg TID PO Last administered on 08/13/17 21:03 ; Admin Dose 200 MG; Start 08/13/17 at 21:00 SEBASTIAN JOSHUA MD Aug 14, 2017 11:28
--- NOTE | 2017-08-14 11:28 | CONS ---
Date/Time of Note Date/Time of Note DATE: 08/14/17 TIME: Assessment/Plan Assessment/Plan Additional Assessment/Plan 1. Paroxysmal atrial fibrillation with rapid response - NOW IN a. fib with RVR again with HD - will load amio gtt now and likely keep on amio po to follow - HOLD D/c now.CONVERTED TO SINUS -loaded with amio IV - will convert to po now. IN sinus - tolerated po amio well. ANOTHER episode of a. fib with HD - will re- load amiodarone - outpt evaluation for ablation advised. SINUS NOW. 2. Hypertension, under reasonable control- improved with HD. Tolerated well besides a. fib. NOw back to sinus. NOW IN SINUS. 3. Abnormal electrocardiogram with nonspecific ST-T abnormalities. Assess for acute coronary syndrome. Possibly provoked in the setting of atrial fibrillation with rapid ventricular response. 4. End-stage renal disease, hemodialysis today - if satble post, likely d/c. 5. Hypothyroidism. 6. Possible pneumonia- rx with anti-Bx. 7. Hyperkalemia- Rx with HD. 8. Hyponatremia. 9. Anemia. Consultation Date/Type/Reason Admit Date/Time Aug 07, 2017 at 17:08 Type of Consultation: cardiology Referring Provider: ASHUTOSH CRISTOBAL 24 HR Interval Summary Free Text/Dictation outpt evaluation for ablation advised. SINUS NOW. ROS: No fever, no chills, no nausea, no vomiting, no diarrhea/constipation No recent weight changes No chest pain, no PND, no orthopnea No dizziness, blurred vision No thirst, no heat or cold intolerance Exam/Review of Systems Vital Signs Vitals Vital Signs Date Time Temp Pulse Resp B/P Pulse Ox O2 Delivery O2 Flow Rate FiO2 08/14/17 08:30 Nasal Cannula 2.0 08/14/17 08:10 59 08/14/17 08:08 20 92 08/14/17 08:02 98.1 157/74 08/13/17 14:28 21 Intake and Output 08/13/17 08/13/17 08/14/17 15:00 23:00 07:00 Intake Total 200 ml Balance 200 ml Exam General: WN/WD/NAD, AOx 3 HEENT: Unicetric/atraumatic/EOMI (follows commands) NECK: JVD elevated, no thyromegaly Lymph: no lymphadenopathy HEART: regular with no S3, II/ systolic murmur at apex LUNGS: Coarse sounds ABD: soft, NT, ND, +BS : Intact Neuro: non focal SKIN: chronic changes EXT: trace edema Results Result Diagram: 08/14/17 0553 08/14/17 0553 Results 24 hrs Laboratory Tests Test 08/14/17 05:53 White Blood Count 6.8 Red Blood Count 2.94 L Hemoglobin 9.5 L Hematocrit 27.2 L Mean Corpuscular Volume 92.5 Mean Corpuscular Hemoglobin 32.3 Mean Corpuscular Hemoglobin Concent 34.9 Red Cell Distribution Width 13.1 Platelet Count 200 Mean Platelet Volume 9.7 Neutrophils % 74.2 Lymphocytes % 12.6 L Monocytes % 8.3 Eosinophils % 4.3 Basophils % 0.3 Nucleated Red Blood Cells % 0.0 Neutrophils # 5.0 Lymphocytes # 0.9 Monocytes # 0.6 Eosinophils # 0.3 Basophils # 0.0 Nucleated Red Blood Cells # 0.0 Sodium Level 129 L Potassium Level 5.2 H Chloride Level 87 L Carbon Dioxide Level 24 Anion Gap 23 H Blood Urea Nitrogen 66 H Creatinine 9.64 H Glucose Level 93 Calcium Level 7.1 L Phosphorus Level 8.7 H Magnesium Level 1.8 Medications Medications Current Medications Lorazepam (Ativan) 0.5 mg Q8H PRN PO ANXIETY; Start 08/07/17 at 18:30 Ondansetron HCl (Zofran Inj) 4 mg Q6H PRN IV NAUSEA AND/OR VOMITING; Start at 18:30 Acetaminophen (Tylenol Tab) 650 mg Q6H PRN PO PAIN LEVEL 1-3 OR FEVER; Start 08/07/17 at 18:30 Acetaminophen/ Hydrocodone Bitart ([place] (5/325)) 1 tab Q6H PRN PO PAIN LEVEL 4 -6; Start 08/07/17 at 18:30 Morphine Sulfate (morphine) 2 mg Q4H PRN IV PAIN LEVEL 7-10; Start 08/07/17 at 18:30 Docusate Sodium (Colace) 100 mg Q12H PRN PO CONSTIPATION; Start 08/07/17 at 18 :30 Bisacodyl (Dulcolax) 5 mg DAILY PRN PO CONSTIPATION; Start 08/07/17 at 18:30 Hydralazine HCl (Apresoline) 50 mg Q8 PO Last administered on 08/14/17 06:15 ; Admin Dose 50 MG; Start 08/07/17 at 22:00 Metoprolol Tartrate (Lopressor) 50 mg BID PO Last administered on 08/13/17 21 :04; Admin Dose 50 MG; Start 08/07/17 at 21:00 Hydralazine HCl (Apresoline) 10 mg Q4H PRN IV sbp>160 Last administered on 18:04; Admin Dose 10 MG; Start 08/07/17 at 19:00 Labetalol HCl (Labetalol) 10 mg Q4 PRN IV sbp>160; Start 08/07/17 at 19:00 Multivit/Ca Carb/ B Cmplx/FA/Prenat (Elena-Loretta) 1 tab DAILY PO Last administered on 08/14/17 08:42; Admin Dose 1 TAB; Start 08/08/17 at 09:00 Epoetin Devin (Epogen (Esrd)) 10,000 units MoWeFr@17 SC Last administered on 18:24; Admin Dose 10,000 UNITS; Start 08/08/17 at 17:00 Metoprolol Tartrate (Lopressor) 5 mg Q4H PRN IV HR>110 Hold SBP<100 Last administered on 08/09/17 11:58; Admin Dose 5 MG; Start 08/08/17 at 19:30 Apixaban (Eliquis) 2.5 mg BID PO Last administered on 08/14/17 08:42; Admin Dose 2.5 MG; Start 08/09/17 at 09:00 Amiodarone HCl (Cordarone) 200 mg TID PO Last administered on 08/13/17 21:03 ; Admin Dose 200 MG; Start 08/13/17 at 21:00 KEYSHAWN RINALDI MD Aug 14, 2017 11:28
[2017-08-14] MEDS ORDERED: AMIO200T2 PO (16:08)
--- NOTE | 2017-08-14 16:20 | PDOCDIS ---
Discharge Instructions DIAGNOSIS Discharge Diagnosis 1. Atrial fibrillation with RVR- stable 2. End-stage renal disease 3. Calcified granuloma and nodules 4. Hypothyroidism 5. Hypertension CONDITION Patient Condition: Fair HOME CARE INSTRUCTIONS: Diet Instructions: Low Fat /CholesterolSpecial Diet: Renal/Cardiac diet ACTIVITY: Activity Restrictions: No Restrictions FOLLOW UP/APPOINTMENTS Follow-up Plan 1. Follow up with your primary care provider as soon as possible 2. Continue eliquis unless stopped by your doctor 3. If eliquis is not covered by insurance, please use attached (handed to you at discharge) coupon for free 30 day trial of eliquis until you see your primary care provider 4. Eliquis is used for the treatment of atrial fibrillation 5. Continue dialysis as usual 6. Take all other medications as prescribed 7. follow up with repeat CT scan of chest for nodules in 6-12 months, ordered by your primary care provider REFERRALS Other Referrals Tano Nelson MD Specialty: Cardiology Office Address [address] [place] [id number] Office SEBASTIAN JOSHUA MD Aug 14, 2017 16:20
--- NOTE | 2017-08-15 11:48 | DS ---
Date/Time of Note Date/Time of Note DATE: 08/15/17 TIME: 11:48 Discharge Summary Admission/Discharge Info Admit Date/Time Aug 07, 2017 at 17:08 Discharge Date/Time Aug 14, 2017 at 20:30 Discharge Diagnosis 1. Atrial fibrillation with RVR- stable 2. End-stage renal disease 3. Calcified granuloma and nodules 4. Hypothyroidism 5. Hypertension Patient Condition: Fair Consults Nephrology Cardiology Procedures PROCEDURE: CT Chest without contrast. CLINICAL INDICATION: Shortness of breath TECHNIQUE: CT scan of the chest without contrast was performed on a multidetector high-resolution CT scanner. Coronal and sagittal reformatted images were obtained from the axial source images. The total exam CTDI equals 14 mGy and the total exam DLP equals 527 mGy-cm. One or more of the following dose reduction techniques were used: Automated exposure control, Adjustment of the mA and/or kV according to patient size, and/or use of iterative reconstruction technique. DICOM images are available. COMPARISON: Chest x-ray yesterday. FINDINGS: Left lower lobe calcified granuloma. There are intralobular and interlobular left basilar lung septal thickening with bronchiolectasis. Left lower lobe pleural thickening. There is mild right lower lobe scarring. Right lower lobe subpleural nodule adjacent to the major fissure. 3 mm right peripheral upper lobe clustered solid nodules. No mediastinal or hilar lymphadenopathy. No evidence of pleural or pericardial effusion. Aortic atherosclerosis. The visualized upper abdomen is grossly unremarkable. Degenerative changes to the thoracic spine are seen. Bilateral renal atrophy. IMPRESSION: Left lower lobe calcified granuloma with intralobular and interlobular left basilar lung septal thickening with bronchiolectasis is age indeterminate but suggestive of a sequela of prior granulomatous infection. If there are new respiratory symptoms, acute on chronic bronchiolitis is not excluded. No evidence of pleural effusion. Right lower lobe subpleural nodule adjacent to the major fissure. 3 mm right peripheral upper lobe clustered solid nodules. If the patient is high risk, 12 month follow-up CT may be obtained. PROCEDURE: Chest x-ray CLINICAL INDICATION: Chest pain TECHNIQUE: Chest single view COMPARISON: None FINDINGS: There is mild cardiomegaly and an sclerotic aortic calcification. The pulmonary vessels are normal in caliber. There are increased markings in the left lower lung in the retrocardiac region may represent evolving infiltrate. Recommend a lateral view for further evaluation. Lungs otherwise clear. Costophrenic angles sharp. The bony thorax is unremarkable. IMPRESSION: 1. Increased markings with questionable air bronchograms in the left lower lobe which may represent evolving pneumonia. Recommend lateral view for further evaluation. 2. Mild cardiomegaly and atherosclerotic aortic calcification Hx of Present Illness Patient is a 81-year-old male with past medical history significant for hypothyroidism, hypertension, end-stage renal disease on hemodialysis Sunday, , Sunday who presents to [facility] after being sent by his dialysis center for atrial fibrillation with RVR. Patient is currently asymptomatic and feels perfectly fine with no acute complaints. Patient states that he does not feel lightheaded, and has no nausea vomiting diarrhea or dizziness. Patient takes all medications as prescribed and has an outpatient professor of genetics. Patient is helped by grandson at bedside who states that patient may have a history of an arrhythmia but does not know if it is atrial fibrillation in the past. PMH: Hypertension, end-stage renal disease, hypothyroidism PSH: Right sided AV fistula upper extremity Social: Denies drinking, drugs, smoking Meds: Metoprolol, levothyroxine, albuterol, hydralazine Hospital Course Patient was admitted and further workup was performed after presenting to [facility] for new onset atrial fibrillation with RVR from dialysis center. Patient spontaneously reverted back to normal sinus rhythm and was evaluated by cardiology for possible anticoagulation. Cardiology saw patient and recommended Eliquis. Patient continued to convert back and forth from atrial fibrillation with RVR to sinus rhythm and medications were adjusted. Patient was discharged with instructions to resume all other home medications and to start Eliquis at a reduced dose due to end-stage renal disease and age. Patient was also given prescription for Eliquis as well as a free 30 day coupon as to tide him over until he can follow with his primary care provider. It was discussed with the patient and he will follow-up with his primary care provider as soon as possible. Patient also instructed to follow up with Cardiology as outpatient as well. Home Meds Active Scripts Amiodarone Hcl* (Amiodarone Hcl*) 200 Mg Tablet, 200 MG PO TID for 30 Days, #90 TAB Prov:SEBASTIAN JOSHUA MD 08/14/17 Apixaban* (Eliquis*) 2.5 Mg Tablet, 2.5 MG PO BID, #60 TAB 1 Refill Prov:RENNY ESQUIVEL 08/09/17 Reported Medications Albuterol Sulfate* (Proair HFA*) 8.5 Gm Hfa.aer.ad, 2 PUFF INH Q4H Y for WHEEZING AND SOB, #1 INHALER 08/07/17 Levothyroxine Sodium* (Levothyroxine Sodium*) 50 Mcg Tablet, 50 MCG PO BEFORE BREAKFAST, #30 TAB 08/07/17 Metoprolol Tartrate* (Lopressor*) 50 Mg Tab, 50 MG PO BID, #60 TAB 08/07/17 Hydralazine Hcl* (Apresoline*) 50 Mg Tab, 50 MG PO Q8, #90 TAB 08/07/17 Follow-up Plan 1. Follow up with your primary care provider as soon as possible 2. Continue eliquis unless stopped by your doctor 3. If eliquis is not covered by insurance, please use attached (handed to you at discharge) coupon for free 30 day trial of eliquis until you see your primary care provider 4. Eliquis is used for the treatment of atrial fibrillation 5. Continue dialysis as usual 6. Take all other medications as prescribed 7. follow up with repeat CT scan of chest for nodules in 6-12 months, ordered by your primary care provider Primary Care Provider Not On Staff Doctor Time spent on discharge: > 30 minutes SEBASTIAN JOSHUA MD Aug 15, 2017 11:48
== END 2017-08-14 20:30 | disposition home or self-care (01) | DRG 308 ==
LOC: E/R 12:24 → MS4 17:08
PROVIDERS: ADMIT Internal Medicine; ATTEND Internal Medicine
PROC: 5A1D70Z Performance of Urinary Filtration, Intermittent, Less than 6 Hours Per Day (ICD-10-PCS; principal; 2017-08-08)
DX: I48.0 Paroxysmal atrial fibrillation (principal); N18.6 End stage renal disease; E11.22 Type 2 diabetes mellitus with diabetic chronic kidney disease; I12.0 Hypertensive chronic kidney disease with stage 5 chronic kidney disease or end stage renal disease; E87.1 Hypo-osmolality and hyponatremia; J44.9 Chronic obstructive pulmonary disease, unspecified; E03.9 Hypothyroidism, unspecified; Z99.2 Dependence on renal dialysis; E87.5 Hyperkalemia; R91.8 Other nonspecific abnormal finding of lung field; D64.9 Anemia, unspecified; R94.31 Abnormal electrocardiogram [ECG] [EKG]
CPT/HCPCS: 71010; 71250; 80048; 80053; 80061; 82550; 82553; 82728; 83540; 83735; 84100; 84439; 84443; 84484; 85025; 85610; 85730; 90686; 90935; 93005; 93306; 94640; 94664; 97116; 97162; J0282; J0360; J0696; J1644; J7060; Q4081